=== PATIENT | female | born 1990 | race Caucasian/White ===

== ENCOUNTER 2018-03-05 15:22 | Emergency (ER) | payer MEDICARE, MEDICAID ==
[2018-03-05 16:40] LABS: ABS Basophils 0.2 10^3/ul (0-0.2); ABS Eosinophils 0.4 10^3/ul (0-0.6); ABS Lymphocytes 2.5 10^3/ul (1.0-4.8); ABS Neutrophils 9.8 10^3/ul (1.5-7.7); ABS Nucleated RBC 0 10^3/ul; Eosinophil % 2.9 % (0-6); Hematocrit 36 % (35-47); Hemoglobin 12.4 g/dl (12.0-16.0); Lymphocyte % 18.2 % (25-47); Mean Corpuscular HGB Conc 34 g/dl (31-36); Mean Corpuscular Hemoglobin 31 pg (27-31); Mean Corpuscular Volume 91 fL (80-97); Mean Platelet Volume 7.8 um3 (7.4-10.4); Nucleated Red Blood Cells % 0; Platelet Count 258 10^3/ul (150-450); Red Blood Count 3.99 10^6/ul (4.0-5.4); Red Cell Distribution Width 14 % (10.5-15)
[2018-03-05 17:02] LABS: EGFR Non-African American 78.1 (>60)
[2018-03-05 19:48] VITALS: BP 113/65
[2018-03-05] MEDS ORDERED: Nicotine PATCH 21 MG/24 HR* PATCH TRANSDERM ONE (20:27)
--- NOTE | 2018-03-05 23:25 | ED ---
Rashad Bergeron Rebecca, scribed for Angel Morris MD on 03/05/18 at 2215 . Progress - Progress Note Progress Note: Pt was signed out by Dr. Reynaga, pending dispo, awaiting MHE. Course/Dx - Course Course Of Treatment: Pt was signed out by Dr. Reynaga, pending dispo, awaiting MHE. Upon completion of MHE and consultation with Dr. Lovell, it has been determined that the pt can be D/C to home. Pt will be D/C with Dx of EtOH intoxication. - Diagnoses Provider Diagnoses: Alcohol intoxication Discharge - Sign-Out/Discharge Documenting (check all that apply): Discharge/Admit/Transfer - Discharge, Receiving Sign-Out Receiving patient FROM: Gavion Reynaga - Discharge Plan Condition: Stable Disposition: HOME Referrals: No Primary Care Phys,NOPCP [Primary Care Provider] - The documentation as recorded by the Rashad yanez Rebecca accurately reflects the service I personally performed and the decisions made by , Angel Morris MD.
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
== END 2018-03-05 22:44 | disposition home or self-care (01) ==
LOC: ED 15:22
DX: F32.9 Major depressive disorder, single episode, unspecified (principal); F41.9 Anxiety disorder, unspecified; F20.9 Schizophrenia, unspecified; Z11.4 Encounter for screening for human immunodeficiency virus [HIV]; Z86.19 Personal history of other infectious and parasitic diseases; Z86.14 Personal history of Methicillin resistant Staphylococcus aureus infection; Z81.8 Family history of other mental and behavioral disorders; Z81.1 Family history of alcohol abuse and dependence; F17.210 Nicotine dependence, cigarettes, uncomplicated
CPT/HCPCS: 36415; 80053; 80320; 80329; 84443; 85025; 86703; 99283; A9270-GY; G0480

== ENCOUNTER 2018-09-24 16:54 | Inpatient (IN) | payer MEDICAID, MEDICARE ==
[2018-09-24] MEDS ORDERED: chlorproMAZINE INJ* 25 MG/ML 2 ML (50 MG) IM ONE (17:10)
[2018-09-24] MEDS ORDERED: chlorproMAZINE INJ* 25 MG/ML 2 ML (50 MG) ONE (17:11)
--- NOTE | 2018-09-24 17:44 | ED ---
Medical Screening - HPI Summary HPI Summary: Patient brought to ED by [facility] complains of wanting to be euthanized. 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 History of self harm, states she was hitting door with her right hand last night, with subsequent abrasions to right hand. Denies self-harm today. Admits to marijuana use yesterday, but none today. Denies EtOH. Denies taking any medications for months. History of borderline bipolar, schizophrenia, depression. Patient appears to be delusional, alternately cooperative and noncooperative. When calm denies any symptoms of illness including fever, cough, sore throat, CP, SOB, N/V/D, abdominal pain, change in urine, change in BM. - History of Current Complaint Chief Complaint: EDMentalHealth Stated Complaint: 941 Time Seen by Provider: 09/24/18 17:04 Severity: moderate PMH/Surg Hx/FS Hx/Imm Hx Endocrine/Hematology History: Denies: Hx Anticoagulant Therapy, Hx Anemia, Hx Unexplained Bleeding Cardiovascular History: Denies: Hx Aneurysm, Hx Angina, Hx Angioplasty, Hx Auto Implanted Cardiovert Defib, Hx Cardiac Arrest, Hx Cardiomegaly, Hx Congenital Heart Disease, Hx Congestive Heart Failure, Hx Coronary Artery Disease, Hx Deep Vein Thrombosis, Hx Hypercholesterolemia, Hx Hypotension, Hx Hypertension, Hx Pacemaker/ICD, Hx Peripheral Vascular Disease, Hx Rheumatic Fever, Hx Syncope, Hx Valvular Heart Disease, Other Cardiovascular Problems/Disorders Respiratory History: Denies: Hx Asthma, Hx Chronic Bronchitis, Hx Chronic Obstructive Pulmonary Disease (COPD), Hx Cystic Fibrosis, Hx Lung Cancer, Hx Pleural Effusion, Hx Pneumonia, Hx Pulmonary Edema, Hx Pulmonary Embolism, Hx Seasonal Allergies, Hx Sleep Apnea, Other Respiratory Problems/Disorders GI History: Denies: Hx Cirrhosis, Hx Crohn's Disease, Hx Diverticulosis, Hx Gall Bladder Disease, Hx Gastroesophageal Reflux Disease, Hx Gastrointestinal Bleed, Hx Hiatal Hernia, Hx Irritable Bowel, Hx Jaundice, Hx Obstructive Bowel, Hx Ileostomy, Hx Pyloric Stenosis, Hx Ulcer, Other GI Disorders Musculoskeletal History: Denies: Hx Arthritis, Hx Back Problems, Hx Bursitis, Hx Congenital Bone Abnormalities, Hx Fibromyalgia, Hx Gout, Hx Orthopedic Injury, Hx Osteoporosis, Hx Scoliosis Sensory History: Denies: Hx Cataracts, Hx Contacts or Glasses, Hx Eye Injury, Hx Eye Prosthesis, Hx Glaucoma, Hx Macular Degeneration, Hx Vision Problem, Hx Deafness , Hx Hearing Aid, Hx Hearing Problem, Other Sensory Impairments Opthamlomology History: Denies: Hx Cataracts, Hx Contacts or Glasses, Hx Eye Injury, Hx Eye Prosthesis, Hx Glaucoma, Hx Macular Degeneration, Hx Vision Problem, Other Sensory Impairments Neurological History: Reports: 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, Hx Seizures Denies: Hx Dementia, Hx Developmental Delay, Hx Headaches, Hx Migraine, Hx Spinal Cord Injury, Hx Transient Ischemic Attacks (TIA) Psychiatric History: Reports: Hx Anxiety, Hx Depression, Hx Inpatient Treatment , Hx Community Mental Health Tx, Hx Schizophrenia - pt denies, located in previous H&P, Hx Suicide Attempt, Hx Substance Abuse Denies: Hx Eating Disorder, Hx of Violent Episodes Against Others Comment Only: Other Psychiatric Issues/Disorders - schizoaffective d/o - Surgical History Surgery Procedure, Year, and Place: Tubes in ears as child, Mastoid surgery Hx Anesthesia Reactions: No Infectious Disease History: Yes Infectious Disease History: Reports: Hx Hepatitis - hepatitis C, Hx of Known/ Suspected MRSA - blood Denies: Hx Clostridium Difficile, Hx Human Immunodeficiency Virus (HIV), Hx Shingles, Hx Tuberculosis, Traveled Outside the [place] in Last 30 Days - Family History Family History: Mother: depression. FHx: alcohol abuse - Social History Alcohol Use: Rare Substance Use Type: Reports: Cocaine, Heroin, Marijuana Smoking Status (MU): Light Every Day Tobacco Smoker Type: Cigarettes Amount Used/How Often: 5-10 a day Length of Time of Smoking/Using Tobacco: 3.5 years Have You Smoked in the Last Year: Yes Review of Systems Constitutional: Negative Eyes: Negative ENT: Negative Cardiovascular: Negative Respiratory: Negative Gastrointestinal: Negative Genitourinary: Negative Musculoskeletal: Negative Positive: Bruising Psychological: Normal All Other Systems Reviewed And Are Negative: Yes Physical Exam - Summary Physical Exam Summary: Patient at times cooperative, at times silent, at times screaming and delusional. Patient allowed physical exam. Abrasions to right hand. Patient flexing and extending fingers of right hand without indication of pain. No indication of trauma, wounds, ecchymosis, erythema, swelling or deformity noted to face, head. No pain with palpation of back, chest wall or abdomen. Indication of old cut wounds on left forearm. Patient has calluses on her feet suggesting she does not wear shoes often. Patient moves all 4 extremities freely without indication of pain. Patient requesting that we "cut her right hand off because it is diseased." Patient asking to be euthanized so she can go to a better place. Patient also states she is seeing babies. Triage Information Reviewed: Yes Vital Signs On Initial Exam: Initial Vitals Temp Pulse Resp BP Pulse Ox 97.8 F 114 20 129/86 98 09/24/18 16:55 09/24/18 16:55 09/24/18 16:55 09/24/18 16:55 09/24/18 16:55 Vital Signs Reviewed: Yes Appearance: Positive: Well-Appearing Skin: Positive: Warm Head/Face: Positive: Normal Head/Face Inspection Eyes: Positive: Normal ENT: Positive: Normal ENT inspection Neck: Positive: Supple Respiratory/Lung Sounds: Positive: Clear to Auscultation Cardiovascular: Positive: Normal Abdomen Description: Positive: Nontender Musculoskeletal: Positive: Normal Neurological: Positive: Normal Psychiatric: Positive: Anxious, Depressed AVPU Assessment: Alert - [place] Coma Scale Best Eye Response: 4 - Spontaneous Best Motor Response: 6 - Obeys Commands Best Verbal Response: 5 - Oriented Coma Scale Total: 15 Diagnostics - Vital Signs Vital Signs Temp Pulse Resp BP Pulse Ox 09/24/18 16:55 97.8 F 114 20 129/86 98 - Laboratory Result Diagrams: 09/24/18 17:44 09/24/18 17:44 Lab Statement: Any lab studies that have been ordered have been reviewed, and results considered in the medical decision making process. Course/Dx - Course Course Of Treatment: Patient brought to ED by [facility] complains of wanting to be euthanized. 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 History of self harm, states she was hitting door with her right hand last night, with subsequent abrasions to right hand. Denies self-harm today. Admits to marijuana use yesterday, but none today. Denies EtOH. Denies taking any medications for months. History of borderline bipolar, schizophrenia, depression. Patient appears to be delusional, alternately cooperative and noncooperative. When calm denies any symptoms of illness including fever, cough , sore throat, CP, SOB, N/V/D, abdominal pain, change in urine, change in BM. Physical exam: Patient at times cooperative, at times silent, at times screaming and delusional. Patient allowed physical exam. Abrasions to right hand. Patient flexing and extending fingers of right hand without indication of pain. No indication of trauma, wounds, ecchymosis, erythema, swelling or deformity noted to face, head. No pain with palpation of back, chest wall or abdomen. Indication of old cut wounds on left forearm. Patient has calluses on her feet suggesting she does not wear shoes often. Patient moves all 4 extremities freely without indication of pain. Patient requesting that we "cut her right hand off because it is diseased." Patient asking to be euthanized so she can go to a better place. Patient also states she is seeing babies. Patient allowed labs to be drawn. Vital signs within normal limits. WBC 11.5. Creatinine 1.2. Labs otherwise unremarkable. Patient needs to hydrate. Otherwise medically cleared. Patient will be admitted to [facility] psychiatric unit. - Diagnoses Provider Diagnoses: Psychosis Discharge - Sign-Out/Discharge Documenting (check all that apply): Patient Departure - Discharge Plan Condition: Stable Disposition: PSYCHIATRIC FACILITY-[facility] Referrals: No Primary Care Phys,NOPCP [Primary Care Provider] - - Billing Disposition and Condition Condition: STABLE Disposition: Psychiatric Facility [facility]
[2018-09-24 17:52] LABS: ABS Basophils 0.1 10^3/ul (0-0.2); ABS Eosinophils 0.1 10^3/ul (0-0.6); ABS Lymphocytes 1.6 10^3/ul (1.0-4.8); ABS Neutrophils 8.8 10^3/ul (1.5-7.7); ABS Nucleated RBC 0 10^3/ul; Hematocrit 43 % (35-47); Hemoglobin 14.3 g/dl (12.0-16.0); Lymphocyte % 13.6 %; Mean Corpuscular HGB Conc 34 g/dl (31-36); Mean Corpuscular Hemoglobin 30 pg (27-31); Mean Corpuscular Volume 91 fL (80-97); Mean Platelet Volume 7.7 fL (7.4-10.4); Nucleated Red Blood Cells % 0.1; Platelet Count 282 10^3/ul (150-450); Red Blood Count 4.71 10^6/ul (4.00-5.40); Red Cell Distribution Width 14 % (10.5-15); White Blood Count 11.5 10^3/ul (3.5-10.8)
[2018-09-24 18:16] LABS: ALT 10 U/L (7-52); AST 13 U/L (13-39); Albumin 4.7 g/dL (3.2-5.2); Albumin/Globulin Ratio 1.6 (1-3); Alkaline Phosphatase 54 U/L (34-104); Anion Gap 7 mmol/L (2-11); BUN/Creatinine Ratio 13.3 (8-20); Blood Urea Nitrogen 16 mg/dL (6-24); CO2 Carbon Dioxide 25 mmol/L (22-32); Calcium 9.4 mg/dL (8.6-10.3); Chloride 106 mmol/L (101-111); EGFR Non-African American 53.5 (>60); Glucose 96 mg/dL (70-100); Potassium 3.9 mmol/L (3.5-5.0); Sodium 138 mmol/L (135-145); Total Protein 7.7 g/dL (6.4-8.9)
[2018-09-24 18:34] LABS: Acetaminophen < 15 mcg/mL; Alcohol < 10 mg/dL (<10); Salicylate < 2.50 mg/dL (<30)
[2018-09-24 18:56] LABS: TSH (Thyroid Stimulating Horm) 2.65 mcIU/mL (0.34-5.60)
[2018-09-25] MEDS ORDERED: Mouth Piece, Nicotine* 1 EACH CARTRIDGE ONE (03:45)
[2018-09-25] MEDS: Nicotine Inhaler* 10 MG AMP INH PRN ×4 (03:51→19:50)
[2018-09-25 04:01] LABS: Urine Appearance Cloudy; Urine Bacteria 1+ (Absent); Urine Bilirubin Negative (Negative); Urine Blood 1+ (Negative); Urine Color Amber; Urine Glucose Negative (Negative); Urine Ketones Trace (Negative); Urine Nitrite Positive (Negative); Urine Protein 1+(30 mg/dL) (Negative); Urine Red Blood Cell 2+(6-10/hpf) (Absent); Urine Specific Gravity 1.028 (1.010-1.030); Urine Urobilinogen Negative (Negative); Urine White Blood Cell 3+(>20/hpf) (Absent)
[2018-09-25 04:14] LABS: Barbiturates Urine Screen None Detected (None Detect); Benzodiazepine Urine Screen None Detected (None Detect); Urine Cannabinoids Screen Presumptive Positive (None Detect)
[2018-09-25] MEDS ORDERED: Nicotine PATCH 14 MG/24 HR* PATCH TRANSDERM ONE (04:22)
[2018-09-25] MEDS ORDERED: LORazepam TAB(*) 1 MG PO ONE ×3 (04:35→12:02)
[2018-09-25] MEDS ORDERED: LORazepam TAB(*) 1 MG ONE (04:38)
[2018-09-25] MEDS ORDERED: ARIPiprazole TAB* 5 MG PO ONE (12:01)
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
[2018-09-25] MEDS: QUEtiapine TAB* 25 MG PO PRN (20:17)
[2018-09-26] MEDS: Nicotine Inhaler* 10 MG AMP INH PRN ×6 (03:16→17:33)
[2018-09-26] MEDS: QUEtiapine TAB* 25 MG PO PRN ×3 (05:21→16:29)
[2018-09-26] MEDS ORDERED: ARIPiprazole TAB* 15 MG PO ONE (09:56)
--- NOTE | 2018-09-26 10:07 | PN ---
Subjective - Subjective Service Type: 47916 Hosp care 25 min moderate complexity Subjective: Luanne denies any hallucinations today. She agrees she has paranoia, that she has been monitored through her phone for the past year. When this provider offered that this is conceivable, as phones can be hacked, she became upset and yelled at this communications writer that if we are not going to take her seriously, she does not want to talk to anyone. To avoid escalation, this communications writer left the interview after telling patient I do take her reports seriously and would see if she wants to talk later. Reported patient's behavior to her 1:1 person, Romain , who agreed she would follow up with patient. Luanne has been having repeated episodes of yelling, seemingly in response to internal stimuli, and has banged her head on the wall. She showed no sign of injury from head banging. She did agree to initiate IM aripiprazole as Aristada. Objective - Appearance Appearance: Well Developed/Nourished Dysmorphic Features: No Hygiene: Normal Grooming: Disheveled - Behavior Psychomotor Activities: Abnormal-Decreased - in bed Exhibits Abnormal Movement: No - Attitude and Relatedness Attitude and Relatedness: Dismissive Eye Contact: Poor - Speech Quality: Unpressured Latencies: Normal Quantity: Terse - Mood Patient's Decription of Mood: "Down" - Affect Observed Affect: Labile - Thought Process Patient's Thought Process: Disorganized Thought Content: Yes Passive Wish, Yes Paranoid Ideation, No Suicidal Planning, No Homicidal Ideation - Sensorium Experiencing Hallucinations: No, Sensorium is Clear - Level of Consciousness Level of Consciousness: Agitated Orientation: Yes Intact - Impulse Control Impulse Control: Impaired - Insight and Judgement Insight and Judgement: Impaired - Medication Management Medication Management Adherence: Yes Assessment - Assessment Merits Inpatient Hospitalization: For Immediate Safety, For Stabilization, To Initiate Treatment, For Ongoing Evaluation, For Discharge Planning, Pending Safe DC Plan Inpatient DSM-V Dx: F20.9 Clinical Impression: Ms Caldwell is a 28 year-old woman with schizophrenia admitted for safety, assessment and treatment after reporting that she wanted to be euthanized and felt she needed her right hand removed because it produces evil, though truthful , drawings and writings. On the unit she has had repeated outbursts of yelling in seeming response to internal stimuli and continues to report delusional thoughts. She demonstrates a high sensitivity to tone of interaction, for example she was unable to tolerate this communications writer's neutral examination of her report of paranoia today. She has agreed to reinitiate aripiprazole as a GHOTRA. Plan - Plan Treatment Plan: Name: LUANNE CALDWELL Birthdate: 1990 [id number] Monitor for safety especially after Luanne hit her head against the wall, and she has reported thoughts about amputating her right hand, toward which thought she has reported no intent to act at this time. Encourage engagement with staff toward goal of group and milieu participation. Initiate IM ariprazole today. Social work staff will gather collateral and plan for discharge. Case reviewed with 1:1 after patient demanded end of interview today in response to exploration of reported paranoia. Continued Medication Management: Start Medication Medications: Current Medications Aripiprazole (Abilify Tab*) 30 mg PO ONCE ONE Stop: 09/26/18 09:57 Aripiprazole Lauroxil (Aristada) 662 mg IM ONCE ONE Stop: 09/26/18 09:52 Nicotine (Nicotine Inhaler*) 10 mg INH Q2H PRN PRN Reason: CRAVING Last Admin: 09/26/18 09:06 Dose: 10 mg Quetiapine Fumarate (Seroquel Tab*) 50 mg PO Q2H PRN PRN Reason: AGITATION/ANXIETY/INSOMNIA Last Admin: 09/26/18 09:14 Dose: 50 mg - Discharge Plan Discharge Plan: Outpatient Follow Up Outpatient Program: [facility] Additional Comments: Not yet clear to where patient will discharge. Clarity on this point will guide aftercare arrangements.
[2018-09-26] MEDS ORDERED: Nicotine PATCH 21 MG/24 HR* PATCH ONE (14:53)
[2018-09-26] MEDS ORDERED: LORazepam TAB(*) 1 MG PO ONE (18:25)
[2018-09-26] MEDS ORDERED: chlorproMAZINE TAB* 50 MG PO ONE (18:25)
[2018-09-26] MEDS ORDERED: LORazepam TAB(*) 1 MG ONE (18:26)
[2018-09-26] MEDS ORDERED: chlorproMAZINE TAB* 50 MG ONE (18:26)
[2018-09-26] MEDS: Nicotine Patch Removal NOTE FOLLOW UP SCH (23:39)
[2018-09-27] MEDS ORDERED: Acetaminophen TAB* 325 MG ONE (01:28)
[2018-09-27] MEDS: Acetaminophen TAB* 325 MG PO PRN ×3 (01:30→22:19)
[2018-09-27] MEDS: Nicotine Inhaler* 10 MG AMP INH PRN ×5 (01:30→16:41)
[2018-09-27] MEDS: Nicotine PATCH 21 MG/24 HR* PATCH TRANSDERM SCH (07:25)
--- NOTE | 2018-09-27 13:19 | PN ---
Subjective - Subjective Date of Service: 09/27/18 Service Type: 73135 Hosp care 25 min moderate complexity Subjective: Luanne reports that she tried to hang herself last night on the unit due to feeling that others did not care about her and due to thoughts about her last interaction with her parents on . She reports that she was angry when she pulled a fountain off the wall, and could not elaborate further on her reason for doing that. She reports on meeting with me around 1 pm that she is not contemplating any harm to herself or damage to things now. She reports that she has come to see that there are people around her who care about her. Objective - Appearance Appearance: Well Developed/Nourished Dysmorphic Features: No Hygiene: Normal Grooming: Fairly Well Kept - Behavior Psychomotor Activities: Normal Exhibits Abnormal Movement: No - Attitude and Relatedness Attitude and Relatedness: Cooperative Eye Contact: Fair - Speech Quality: Unpressured Latencies: Normal Quantity: Appropriate - Mood Patient's Decription of Mood: "Okay" - Affect Observed Affect: Depressed Affect Consistent with: Dysphoria - Thought Process Patient's Thought Process: Coherent, Goal Directed Thought Content: No Passive Wish, No Suicidal Planning, No Homicidal Ideation, No Paranoid Ideation - Sensorium Experiencing Hallucinations: No, Sensorium is Clear - Level of Consciousness Level of Consciousness: Alert Orientation: Yes Intact, Yes Orientated to Time, Yes Orientated to Place, Yes Orientated to Person - Impulse Control Impulse Control: Tenuous - Insight and Judgement Insight and Judgement: Poor - Group Participation Particating in Group Activities: No - Medication Management Medication Management Adherence: Yes Assessment - Assessment Merits Inpatient Hospitalization: For Immediate Safety, For Stabilization, To Initiate Treatment, For Ongoing Evaluation, Pending Safe DC Plan Inpatient DSM-V Dx: F20.9 Clinical Impression: Ms Caldwell is a 28 year-old woman with schizophrenia admitted for safety, assessment and treatment after reporting that she wanted to be euthanized and felt she needed her right hand removed because it produces evil, though truthful , drawings and writings. On the unit she has had repeated outbursts of yelling in seeming response to internal stimuli and continues to report delusional thoughts. She demonstrates a high sensitivity to tone of interaction, for example she was unable to tolerate this singer songwriter's neutral examination of her report of paranoia yesterday. Aripiprazole GHOTRA was reinitiated yesterday. Pharmacy informed us that it takes about 4 days for the Aristada Initio to reach efficacious serum levels. Plan - Plan Treatment Plan: Name: LUANNE CALDWELL Birthdate: 1990 [id number] Monitor for safety on constant observation due to Luanne's reported attempt to hang herself and damage to a drinking fountain last evening. Encourage engagement with staff in case of impulses to harm self, others or property and to move toward goal of group and milieu participation. Initiated IM ariprazole yesterday. Continue PRN Seroquel. Social work staff will gather collateral and plan for discharge. Medications: Current Medications Acetaminophen (Tylenol Tab*) 650 mg PO Q4H PRN PRN Reason: PAIN Last Admin: 09/27/18 01:30 Dose: 650 mg Nicotine (Nicotine Inhaler*) 10 mg INH Q2H PRN PRN Reason: CRAVING Last Admin: 09/27/18 10:10 Dose: 10 mg Nicotine (Nicotine Patch 21 Mg/24 Hr*) 1 patch TRANSDERM DAILY@[facility] Last Admin: 09/27/18 07:25 Dose: 1 patch Pharmacy Profile Note (Nicotine Patch Removal Note*) 1 note FOLLOW UP [facility] Last Admin: 09/26/18 23:39 Dose: Not Given Quetiapine Fumarate (Seroquel Tab*) 50 mg PO Q2H PRN PRN Reason: AGITATION/ANXIETY/INSOMNIA Last Admin: 09/26/18 16:29 Dose: 50 mg - Discharge Plan Discharge Plan: Outpatient Follow Up Additional Comments: Not yet clear to where patient will discharge. Clarity on this point will guide aftercare arrangements.
[2018-09-27] MEDS ORDERED: Ziprasidone CAP* 80 MG PO SCH (14:00)
[2018-09-27] MEDS: QUEtiapine TAB* 25 MG PO PRN ×2 (14:03→22:18)
[2018-09-27] MEDS: Nicotine Patch Removal NOTE FOLLOW UP SCH (23:22)
[2018-09-28] MEDS: Nicotine Inhaler* 10 MG AMP INH PRN ×4 (06:00→19:57)
[2018-09-28] MEDS: Nicotine PATCH 21 MG/24 HR* PATCH TRANSDERM SCH (07:00)
--- NOTE | 2018-09-28 18:25 | PN ---
Subjective - Subjective Date of Service: 09/28/18 Service Type: [id number] Hosp care 15 min low complexity Subjective: Luanne continues to be on continuous obs for safety. Spent a lot of time in the exercise room. Says she feels fine today and didn't think about harming self or others. Mood is better and hasn't been hearing voices or seeing things. Objective - Appearance Appearance: Healthy Appearing Dysmorphic Features: No Hygiene: Normal Grooming: Well Kept - Behavior Psychomotor Activities: Normal Exhibits Abnormal Movement: No - Attitude and Relatedness Attitude and Relatedness: Appropriate Eye Contact: Good - Speech Quality: Unpressured Latencies: Normal Quantity: Appropriate - Mood Patient's Decription of Mood: "Fine" - Affect Observed Affect: Non-labile Affect Consistent with: Euthymia - Thought Process Patient's Thought Process: Coherent, Goal Directed Thought Content: No Passive Wish, No Suicidal Planning, No Homicidal Ideation, No Paranoid Ideation - Sensorium Experiencing Hallucinations: No, Sensorium is Clear Type of Hallucinations: Visual: No, Auditory: No, Command: No - Level of Consciousness Level of Consciousness: Alert Orientation: Yes Intact, Yes Orientated to Time, Yes Orientated to Place, Yes Orientated to Person - Impulse Control Impulse Control: Tenuous - Insight and Judgement Insight and Judgement: Poor - Group Participation Particating in Group Activities: No - Medication Management Medication Management Adherence: Yes Assessment - Assessment Merits Inpatient Hospitalization: For Immediate Safety, For Stabilization, For Ongoing Evaluation, Pending Safe DC Plan Inpatient DSM-V Dx: F20.9 Clinical Impression: Ms Caldwell is a 28 year-old woman with schizophrenia admitted for safety, assessment and treatment after reporting that she wanted to be euthanized and felt she needed her right hand removed because it produces evil, though truthful , drawings and writings. On the unit she has had repeated outbursts of yelling in seeming response to internal stimuli and continues to report delusional thoughts. She demonstrates a high sensitivity to tone of interaction, for example she was unable to tolerate this sba underwriter's neutral examination of her report of paranoia yesterday. Aripiprazole GHOTRA was reinitiated yesterday. Pharmacy informed us that it takes about 4 days for the Aristada Initio to reach efficacious serum levels. Plan - Plan Treatment Plan: Name: LUANNE CALDWELL Birthdate: 1990 [id number] Monitor for safety on constant observation due to Luanne's reported attempt to hang herself and damage to a drinking fountain last evening. Encourage engagement with staff in case of impulses to harm self, others or property and to move toward goal of group and milieu participation. Initiated IM ariprazole yesterday. Continue PRN Seroquel. Social work staff will gather collateral and plan for discharge. Continued Medication Management: Continue Outpt Medication Medications: Current Medications Acetaminophen (Tylenol Tab*) 650 mg PO Q4H PRN PRN Reason: PAIN Last Admin: 09/27/18 22:19 Dose: 650 mg Nicotine (Nicotine Inhaler*) 10 mg INH Q2H PRN PRN Reason: CRAVING Last Admin: 09/28/18 13:54 Dose: 10 mg Nicotine (Nicotine Patch 21 Mg/24 Hr*) 1 patch TRANSDERM DAILY@0800 [facility] Last Admin: 09/28/18 07:00 Dose: 1 patch Pharmacy Profile Note (Nicotine Patch Removal Note*) 1 note FOLLOW UP 2100 [facility] Last Admin: 09/27/18 23:22 Dose: Not Given Quetiapine Fumarate (Seroquel Tab*) 50 mg PO Q2H PRN PRN Reason: AGITATION/ANXIETY/INSOMNIA Last Admin: 09/27/18 22:18 Dose: 50 mg - Discharge Plan Discharge Plan: Outpatient Follow Up Outpatient Program: [facility]
[2018-09-28] MEDS: Nicotine Patch Removal NOTE FOLLOW UP SCH (20:00)
[2018-09-28] MEDS: QUEtiapine TAB* 25 MG PO PRN (21:06)
[2018-09-29] MEDS: Nicotine Inhaler* 10 MG AMP INH PRN ×4 (02:30→18:45)
[2018-09-29] MEDS: QUEtiapine TAB* 25 MG PO PRN ×2 (02:31→15:15)
[2018-09-29] MEDS: Nicotine PATCH 21 MG/24 HR* PATCH TRANSDERM SCH (07:08)
[2018-09-30] MEDS: Nicotine Inhaler* 10 MG AMP INH PRN ×5 (01:24→15:34)
[2018-09-30] MEDS: QUEtiapine TAB* 25 MG PO PRN (01:24)
[2018-09-30] MEDS: Nicotine Patch Removal NOTE FOLLOW UP SCH ×2 (07:30→22:01)
[2018-09-30] MEDS: Nicotine PATCH 21 MG/24 HR* PATCH TRANSDERM SCH (08:28)
[2018-09-30] MEDS: Acetaminophen TAB* 325 MG PO PRN (10:21)
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
[2018-10-01] MEDS: Nicotine Inhaler* 10 MG AMP INH PRN ×7 (00:29→19:07)
[2018-10-01] MEDS: QUEtiapine TAB* 25 MG PO PRN ×2 (00:29→20:31)
[2018-10-01] MEDS: Nicotine PATCH 21 MG/24 HR* PATCH TRANSDERM SCH (08:16)
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
[2018-10-01] MEDS: Nicotine Patch Removal NOTE FOLLOW UP SCH (23:42)
[2018-10-02] MEDS: Nicotine Inhaler* 10 MG AMP INH PRN ×3 (04:25→11:27)
[2018-10-02] MEDS: QUEtiapine TAB* 25 MG PO PRN (04:25)
[2018-10-02] MEDS: Nicotine PATCH 21 MG/24 HR* PATCH TRANSDERM SCH (08:14)
[2018-10-02 08:51] VITALS: BP 113/71
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
== END 2018-10-02 12:30 | disposition home or self-care (01) | DRG 885 ==
LOC: ED 16:54 → BSU 09-25 05:10
PROVIDERS: ADMIT Psychiatry & Neurology Psychiatry; ATTEND Psychiatry & Neurology Psychiatry
DX: F20.9 Schizophrenia, unspecified (principal); F12.90 Cannabis use, unspecified, uncomplicated; F17.210 Nicotine dependence, cigarettes, uncomplicated; F11.11 Opioid abuse, in remission; F41.9 Anxiety disorder, unspecified; Z81.1 Family history of alcohol abuse and dependence; Z81.3 Family history of other psychoactive substance abuse and dependence; Z81.8 Family history of other mental and behavioral disorders; Z86.19 Personal history of other infectious and parasitic diseases
CPT/HCPCS: 36415; 80053; 80307; 80320; 80329; 81003; 81015; 84443; 85025; 87077; 87086; 87186; 99222; 99231; 99232; 99283; A9270-GY; G0480

== ENCOUNTER 2019-11-05 01:55 | Inpatient (IN) | payer MEDICARE, MEDICAID ==
--- NOTE | 2019-11-05 02:06 | ED ---
Substance Abuse/Use - HPI Summary HPI Summary: 29 year old F brought in by EMS to [facility] from [facility] complains of paranoid thoughts about people trying to poison her after using heroin yesterday 11/04/2019. Patient was combative at [place] per EMS. EMS administered Benadryl, Haldol, and Ativan en route. Patient denies suicidal ideation. LEVEL 5 caveat due to patient being sedated prior to arrival - History Of Current Complaint Stated Complaint: MENTAL HEALTH Hx Obtained From: EMS Associated Signs And Symptoms: Negative - SI - Allergies/Home Medications Allergies/Adverse Reactions: Allergies Allergy/AdvReac Type Severity Reaction Status Date / Time No Known Allergies Allergy Verified 11/05/19 02:00 PMH/Surg Hx/FS Hx/Imm Hx Endocrine/Hematology History: Denies: Hx Anticoagulant Therapy, Hx Anemia, Hx Unexplained Bleeding Cardiovascular History: Denies: Hx Aneurysm, Hx Angina, Hx Angioplasty, Hx Auto Implanted Cardiovert Defib, Hx Cardiac Arrest, Hx Cardiomegaly, Hx Congenital Heart Disease, Hx Congestive Heart Failure, Hx Coronary Artery Disease, Hx Deep Vein Thrombosis, Hx Hypercholesterolemia, Hx Hypotension, Hx Hypertension, Hx Pacemaker/ICD, Hx Peripheral Vascular Disease, Hx Rheumatic Fever, Hx Syncope, Hx Valvular Heart Disease, Other Cardiovascular Problems/Disorders Respiratory History: Denies: Hx Asthma, Hx Chronic Bronchitis, Hx Chronic Obstructive Pulmonary Disease (COPD), Hx Cystic Fibrosis, Hx Lung Cancer, Hx Pleural Effusion, Hx Pneumonia, Hx Pulmonary Edema, Hx Pulmonary Embolism, Hx Seasonal Allergies, Hx Sleep Apnea, Other Respiratory Problems/Disorders GI History: Denies: Hx Cirrhosis, Hx Crohn's Disease, Hx Diverticulosis, Hx Gall Bladder Disease, Hx Gastroesophageal Reflux Disease, Hx Gastrointestinal Bleed, Hx Hiatal Hernia, Hx Irritable Bowel, Hx Jaundice, Hx Obstructive Bowel, Hx Ileostomy, Hx Pyloric Stenosis, Hx Ulcer, Other GI Disorders Musculoskeletal History: Denies: Hx Arthritis, Hx Back Problems, Hx Bursitis, Hx Congenital Bone Abnormalities, Hx Fibromyalgia, Hx Gout, Hx Orthopedic Injury, Hx Osteoporosis, Hx Scoliosis Sensory History: Denies: Hx Cataracts, Hx Contacts or Glasses, Hx Eye Injury, Hx Eye Prosthesis, Hx Glaucoma, Hx Macular Degeneration, Hx Vision Problem, Hx Deafness , Hx Hearing Aid, Hx Hearing Problem, Other Sensory Impairments Opthamlomology History: Denies: Hx Cataracts, Hx Contacts or Glasses, Hx Eye Injury, Hx Eye Prosthesis, Hx Glaucoma, Hx Macular Degeneration, Hx Vision Problem, Other Sensory Impairments Neurological History: Reports: 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, Hx Seizures Denies: Hx Dementia, Hx Developmental Delay, Hx Headaches, Hx Migraine, Hx Spinal Cord Injury, Hx Transient Ischemic Attacks (TIA) Psychiatric History: Reports: Hx Anxiety, Hx Depression, Hx Inpatient Treatment , Hx Community Mental Health Tx, Hx Schizophrenia, Hx Suicide Attempt, Hx of Violent Episodes Against Others, Hx Substance Abuse, Other Psychiatric Issues/ Disorders - schizoaffective d/o Denies: Hx Eating Disorder - Surgical History Surgery Procedure, Year, and Place: Tubes in ears as child, Mastoid surgery Hx Anesthesia Reactions: No Infectious Disease History: Reports: Hx Hepatitis - hepatitis C, Hx of Known/ Suspected MRSA - blood Denies: Hx Clostridium Difficile, Hx Human Immunodeficiency Virus (HIV), Hx Shingles, Hx Tuberculosis - Family History Family History: Mother: depression. FHx: alcohol abuse - Social History Alcohol Use: Occasionally Hx Substance Use: Yes Substance Use Type: Reports: Heroin, Marijuana, Other - meth Hx Tobacco Use: Yes Smoking Status (MU): Current Every Day Smoker Type: Cigarettes Amount Used/How Often: 5-10 a day Length of Time of Smoking/Using Tobacco: 3.5 years Have You Smoked in the Last Year: Yes Review of Systems Negative: Fever Positive: Other - paranoid thoughts; NEG: SI All Other Systems Reviewed And Are Negative: Yes Physical Exam - Summary Physical Exam Summary: Appearance: Well-appearing, Well-nourished, lying in bed comfortably Skin: Warm, dry, no obvious rash Eyes: sclera anicteric, no conjunctival pallor ENT: mucous membranes moist, pharynx appears normal Neck: Supple, nontender Respiratory: Clear to auscultation, no signs of respiratory distress Cardiovascular: Normal S1, S2. No murmurs. Normal distal pulses in tibial and radial bilaterally. Abdomen: Soft, nontender, normal active bowel sounds present Musculoskeletal: Normal, Strength/ROM Intact Neurological: Patient is arousable to voice. She can answer simple questions. Psychiatric: She admits to using heroin and perhaps other drugs. She denies any suicidal ideation LEVEL 5 caveat due to patient being sedated prior to arrival Triage Information Reviewed: Yes Vital Signs Reviewed: Yes Procedures - Sedation Patient Received Moderate/Deep Sedation with Procedure: No Course/Dx - Course Course Of Treatment: 29 y/o F brought in by EMS from [facility] presents with paranoid thoughts about people trying to poison her after using heroin yesterday 11/04/2019. EMS administered Benadryl, Haldol, and Ativan en route. Patient denies suicidal ideation. Upon exam, the patient is arousable to voice. She can answer simple questions. She admits to using heroin and perhaps other drugs. She denies any suicidal ideation. Patient will be signed out to Dr. Tesfaye upon shift change 11/05/2019 0700 pending psychiatric evaluation and disposition. - Diagnoses Provider Diagnoses: Substance abuse, Schizophrenia Discharge ED - Sign-Out/Discharge Documenting (check all that apply): Sign-Out Patient Signing out patient TO: Daquan Tesfaye - Discharge Plan Condition: Stable Disposition: PSYCHIATRIC FACILITY-OTHER - Billing Disposition and Condition Condition: STABLE Disposition: Psychiatric Facility Other - Attestation Statements Document Initiated by Scribe: Yes Documenting Scribe: Hailey Jacobson Provider For Whom [place] is Documenting (Include Credential): Krishna Dumont MD Scribe Attestation: Hailey Bergeron, scribed for Krishna Dumont MD on 11/06/19 at 0506. Scribe Documentation Reviewed: Yes Provider Attestation: The documentation as recorded by the Hailey yanez accurately reflects the service I personally performed and the decisions made by me, Krishna Dumont MD Status of Scribe Document: Viewed
--- NOTE | 2019-11-05 07:04 | ED ---
Progress - Progress Note Progress Note: This patient was signed out from upon shift change on 11/05/2019 at 0700, pending MHE and disposition. 1342: MHE diagnoses pt with schizophrenia and substance abuse. Pt will be admitted to [facility] psych. Course/Dx - Diagnoses Provider Diagnoses: Substance abuse, Schizophrenia Discharge ED - Sign-Out/Discharge Documenting (check all that apply): Patient Departure - admit - Discharge Plan Condition: Stable Disposition: PSYCHIATRIC FACILITY-OTHER - Billing Disposition and Condition Condition: STABLE Disposition: Psychiatric Facility Other - Attestation Statements Document Initiated by Scribe: Yes Documenting Scribe: Narendra Shaikh Provider For Whom Scribe is Documenting (Include Credential): Lior Tesfaye DO Scribe Attestation: Narendra Bergeron scribed for Lior Tesfaye DO on 11/05/19 at 1744. Scribe Documentation Reviewed: Yes Provider Attestation: The documentation as recorded by the scribeNarendra accurately reflects the service I personally performed and the decisions made by me, Lior Tesfaye DO Status of Scribe Document: Viewed
[2019-11-05] MEDS ORDERED: LORazepam TAB(*) 1 MG PO ONE (14:24)
[2019-11-05] MEDS: Nicotine PATCH 14 MG/24 HR* PATCH TRANSDERM SCH (14:42)
[2019-11-05] MEDS ORDERED: Al Hydrox/Mg Hydrox/Simet LIQ* 30 ML UDC PO PRN (15:17)
[2019-11-05] MEDS ORDERED: Acetaminophen TAB* 325 MG PO PRN (15:17)
[2019-11-05] MEDS ORDERED: chlorproMAZINE TAB* 100 MG PO PRN (15:18)
[2019-11-05] MEDS: Nicotine Patch Removal NOTE PATCH OFF SCH (20:41)
[2019-11-06] MEDS: Nicotine PATCH 14 MG/24 HR* PATCH TRANSDERM SCH (08:44)
[2019-11-06] MEDS ORDERED: LORazepam TAB(*) 1 MG PO SCH (12:00)
[2019-11-06] MEDS: Nicotine PATCH 21 MG/24 HR* PATCH TRANSDERM SCH (12:23)
--- NOTE | 2019-11-06 15:17 | HP ---
HISTORY AND PHYSICAL: ADDENDUM: DIAGNOSTIC STUDIES/LAB DATA: Labs were obtained at [facility] prior to the patient's arrival to [facility]. CBC generally unremarkable. Chemistry: Glucose of 124, anion gap 12, protein 8.8, globulin 4.5, A/G ratio of 0.9, AST 12. Urinalysis, no results. Urine drug screen positive for cannabinoids and amphetamines. NIKHIL ANGUIANO, DIRECTOR OF ENTERPRISE APPLICATIONS [id number]/[facility] #: [id number] [facility]
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
[2019-11-07] MEDS: Nicotine Patch Removal NOTE PATCH OFF SCH ×2 (02:00→22:18)
[2019-11-07] MEDS: OLANzapine TAB*ODT* 5 MG PO SCH ×2 (02:00→12:16)
[2019-11-07] MEDS: Nicotine PATCH 21 MG/24 HR* PATCH TRANSDERM SCH (08:28)
[2019-11-07] MEDS: Nicotine* 4MG (FRUIT FLAVOR) GUM PO PRN ×2 (11:32→14:13)
[2019-11-07] MEDS: Folic Acid TAB* 1 MG PO SCH (12:15)
[2019-11-07] MEDS: Multivitamins/Minerals TAB PO SCH (12:16)
[2019-11-07] MEDS: Thiamine TAB* 100 MG TAB PO SCH (12:16)
[2019-11-07] MEDS ORDERED: LORazepam TAB(*) 1 MG PO ONE (14:37)
[2019-11-07] MEDS ORDERED: LORazepam TAB(*) 1 MG ONE (14:37)
--- NOTE | 2019-11-07 16:31 | PN ---
Subjective - Subjective Date of Service: 11/07/19 Service Type: 26881 Hosp care 25 min moderate complexity Subjective: According to staff, patient has been alternately irritable and isolative. Patient is guarded and labile. She states "I don't know who to trust." She denies recent methamphetamine use and reports she is in a "spiritual crisis." She expresses disbelief when I repeat statements she made to me yesterday. She states her parents are not allowed to be contacted because they, and others, are poisoning her. Patient encouraged to take medications to assist in moving towards discharge. Objective - General Observations Appearance: Malodorous, Unkempt Stature: Thin Posture: WNL Eye Contact: Avoidant Behavior/Activity: Peculiar, Agitated - Interaction Observations Attitude Towards Examiner: Anxious, Evasive, Mistrustful Stated Mood: Irritable, Anxious Affect: Labile, Incongruent Speech Pattern/Tone: Quiet Volume Thought Process: Disorganized Perception: WNL Thought Content: Paranoid Thought Process: Lethality: Paranoid Ideation Hallucination Type: Auditory, Visual Delusion Type: Persecution - Cognitive Function Orientation: A&O x 4 Level of Consciousness: Alert Cognition: Impaired Attention/Concentration Estimated Intelligence: Normal Insight: Difficulty Acknowledging Presence of Psyciatric Problems Judgment Within Normal Limits: No Ability to Make Reasonable Decisions: Serverely Impaired - Medication Compliance Cooperative with Inpatient Medication Regimen: No - Group Participation Participates in Group Activities: No Assessment - Assessment Merits Inpatient Hospitalization: For Immediate Safety, For Stabilization Inpatient DSM-V Dx: F15.159 Clinical Impression: 29yo wf, domiciled, disabled with known history of schizophrenia and substance abuse. She presented to [facility] when driven there by a stranger after acting bizarrely in a laundromat. She was combative and agitated in ED, thus received emergency medication and transported to [facility] for psychiatric admission. She is floridly psychotic and endorses latter-day and persecutory delusions. She merits hospitalization for immediate safety and stabilization. Plan - Plan Treatment Plan: Name: MARY FERREIRA Birthdate: 1990 [id number] continue acute intensive psychiatric treatment. DC olanzapine. start aripiprazole 5mg qhs. continue other medications as ordered. patient has submitted court request and [facility] is pursuing Treatment Over Objection. Continued Medication Management: Start Medication Medications: Current Medications Acetaminophen (Tylenol Tab*) 650 mg PO Q4H PRN PRN Reason: for pain; or Temp >101 F Al Hydrox/Mg Hydrox/Simethicone (Maalox Plus*) 30 ml PO Q4H PRN PRN Reason: INDIGESTION Aripiprazole (Abilify Tab*) 5 mg PO BEDTIME [facility] Chlorpromazine HCl (Thorazine Tab*) 100 mg PO Q6H PRN PRN Reason: AGITATION Last Admin: 11/07/19 14:38 Dose: 100 mg Folic Acid (Folvite Tab*) 1 mg PO DAILY [facility] Last Admin: 11/07/19 12:15 Dose: Not Given Lorazepam (Ativan Tab(*)) 0 - 6 mg PO .PER [facility] PROTOCOL [facility]; Protocol Multivitamins/Minerals (Theragran/Minerals Tab*) 1 tab PO DAILY [facility] Last Admin: 11/07/19 12:16 Dose: Not Given Nicotine (Nicotine Patch 21 Mg/24 Hr*) 1 patch TRANSDERM DAILY [facility] Last Admin: 11/07/19 08:28 Dose: 1 patch Nicotine Polacrilex (Nicotine Gum*) 4 mg PO Q2H PRN PRN Reason: CRAVING Last Admin: 11/07/19 14:13 Dose: 4 mg Pharmacy Profile Note (Nicotine Patch Removal Note*) 1 note PATCH OFF 2100 [facility] Last Admin: 11/07/19 02:00 Dose: Not Given Thiamine HCl (Vitamin B-1 Tab*) 100 mg PO DAILY [facility] Last Admin: 11/07/19 12:16 Dose: Not Given - Discharge Plan Discharge Plan: Inpatient Hospitalization
[2019-11-07] MEDS: ARIPiprazole TAB* 5 MG PO SCH (21:57)
[2019-11-08 08:29] LABS: HDL Cholesterol 43.3 mg/dL
[2019-11-08] MEDS: Multivitamins/Minerals TAB PO SCH (09:32)
[2019-11-08] MEDS: Folic Acid TAB* 1 MG PO SCH (09:32)
[2019-11-08] MEDS: Thiamine TAB* 100 MG TAB PO SCH (09:32)
[2019-11-08] MEDS: Nicotine PATCH 21 MG/24 HR* PATCH TRANSDERM SCH (09:32)
[2019-11-08] MEDS: Nicotine* 4MG (FRUIT FLAVOR) GUM PO PRN ×3 (10:28→16:59)
--- NOTE | 2019-11-08 14:30 | PN ---
Subjective - Subjective Date of Service: 11/08/19 Service Type: 54888 Hosp care 15 min low complexity Subjective: Luanne is seen in weekend coverage for NPP, Beckie Patel. The patient is laying in her room, appearing guarded and not very forthcoming. Staff reports that she was quite bizarre this morning, stating that a male peer on the unit ( [employer] is her father. She has started oral aripiprazole and has no complaints about this. She denies SI or HI but is oddly related. Objective - General Observations Appearance: Well Groomed Appears Stated Age: Yes Stature: WNL Posture: Tense Eye Contact: Avoidant Behavior/Activity: Peculiar - Interaction Observations Attitude Towards Examiner: Evasive Stated Mood: Dysphoric Affect: Flat Speech Pattern/Tone: Delayed Thought Process: Impoverished Thought Content: Paranoid Thought Process: Lethality: Paranoid Ideation Hallucination Type: None Delusion Type: Persecution - Cognitive Function Orientation: A&O x 4 Level of Consciousness: Awake Cognition: WNL Estimated Intelligence: Normal Insight: WNL Judgment Within Normal Limits: Yes - Medication Compliance Cooperative with Inpatient Medication Regimen: Yes - Group Participation Participates in Group Activities: Yes Assessment - Assessment Merits Inpatient Hospitalization: For Immediate Safety, For Stabilization Inpatient DSM-V Dx: F15.159 Clinical Impression: 29yo wf, domiciled, disabled with known history of schizophrenia and substance abuse. She presented to [facility] when driven there by a stranger after acting bizarrely in a laundromat. She was combative and agitated in ED, thus received emergency medication and transported to [facility] for psychiatric admission. She is floridly psychotic and endorses latter day and persecutory delusions. She merits hospitalization for immediate safety and stabilization. Plan - Plan Treatment Plan: Name: LUANNE FERREIRA Birthdate: 1990 [id number] continue acute intensive psychiatric treatment. DC olanzapine. start aripiprazole 5mg qhs. continue other medications as ordered. patient has submitted court request and [facility] is pursuing Treatment Over Objection. Continued Medication Management: Continue Outpt Medication Medications: Current Medications Acetaminophen (Tylenol Tab*) 650 mg PO Q4H PRN PRN Reason: for pain; or Temp >101 F Al Hydrox/Mg Hydrox/Simethicone (Maalox Plus*) 30 ml PO Q4H PRN PRN Reason: INDIGESTION Aripiprazole (Abilify Tab*) 5 mg PO BEDTIME [facility] Last Admin: 11/07/19 21:57 Dose: 5 mg Chlorpromazine HCl (Thorazine Tab*) 100 mg PO Q6H PRN PRN Reason: AGITATION Last Admin: 11/07/19 14:38 Dose: 100 mg Folic Acid (Folvite Tab*) 1 mg PO DAILY [facility] Last Admin: 11/08/19 09:32 Dose: 1 mg Lorazepam (Ativan Tab(*)) 0 - 6 mg PO .PER [facility] PROTOCOL [facility]; Protocol Multivitamins/Minerals (Theragran/Minerals Tab*) 1 tab PO DAILY [facility] Last Admin: 11/08/19 09:32 Dose: 1 tab Nicotine (Nicotine Patch 21 Mg/24 Hr*) 1 patch TRANSDERM DAILY [facility] Last Admin: 11/08/19 09:32 Dose: 1 patch Nicotine Polacrilex (Nicotine Gum*) 4 mg PO Q2H PRN PRN Reason: CRAVING Last Admin: 11/08/19 12:46 Dose: 4 mg Pharmacy Profile Note (Nicotine Patch Removal Note*) 1 note PATCH OFF 2100 [facility] Last Admin: 11/07/19 22:18 Dose: 1 note Thiamine HCl (Vitamin B-1 Tab*) 100 mg PO DAILY [facility] Last Admin: 11/08/19 09:32 Dose: 100 mg - Discharge Plan Discharge Plan: Inpatient Hospitalization Lab Results - Lab Results Lab Results: 11/08/19 11/08/19 08:07 08:07 Hemoglobin A1c 4.9 Triglycerides 88 Cholesterol 132 LDL Cholesterol 71 HDL Cholesterol 43.3
[2019-11-08] MEDS ORDERED: chlorproMAZINE TAB* 50 MG ONE (16:58)
[2019-11-08] MEDS ORDERED: chlorproMAZINE TAB* 100 MG PO PRN (20:00)
[2019-11-09] MEDS: Nicotine Patch Removal NOTE PATCH OFF SCH ×2 (00:28→20:27)
[2019-11-09] MEDS: ARIPiprazole TAB* 5 MG PO SCH ×2 (00:29→20:24)
[2019-11-09] MEDS: Nicotine PATCH 21 MG/24 HR* PATCH TRANSDERM SCH (07:32)
[2019-11-09] MEDS: Thiamine TAB* 100 MG TAB PO SCH (08:47)
[2019-11-09] MEDS: Folic Acid TAB* 1 MG PO SCH (08:47)
[2019-11-09] MEDS: Multivitamins/Minerals TAB PO SCH (08:47)
[2019-11-09] MEDS: Nicotine* 4MG (FRUIT FLAVOR) GUM PO PRN ×5 (08:48→20:23)
[2019-11-10] MEDS: Nicotine PATCH 21 MG/24 HR* PATCH TRANSDERM SCH (08:49)
[2019-11-10] MEDS: Thiamine TAB* 100 MG TAB PO SCH (08:50)
[2019-11-10] MEDS: Folic Acid TAB* 1 MG PO SCH (08:50)
[2019-11-10] MEDS: Multivitamins/Minerals TAB PO SCH (08:50)
--- NOTE | 2019-11-10 11:57 | PN ---
Subjective - Subjective Date of Service: 11/10/19 Service Type: 05181 Hosp care 25 min moderate complexity Subjective: Over the weekend, patient was destructive in her room and voiced paranoid delusions along with threats of violence towards staff. Today, patient is lying on couch resting and pleasant upon approach. She states that she is feeling "better" and attributes recent behaviors on menstrual cycle. She states "I lose my mind every month." She is vague when asked about thoughts of being poisoned. She endorses poor insight into recent substance use. She does identify with dx of bipolar disorder and states that she is better able to avoid drug use when she is "on my meds." She agrees to initiate GHOTRA of aripiprazole and states understanding of regimen: oral dose of 30mg, along with Initio 675mg injection and Aristada 882mg injection. Objective - General Observations Appearance: Well Groomed Stature: WNL Posture: Slumped Eye Contact: Average Behavior/Activity: WNL - Interaction Observations Attitude Towards Examiner: Cooperative Stated Mood: Dysphoric Affect: Flat Speech Pattern/Tone: Clear, Appropriate, Quiet Volume Thought Process: Coherent Perception: WNL Thought Content: Paranoid, Grandiose Thought Process: Lethality: Paranoid Ideation Hallucination Type: Denies Delusion Type: Persecution, Grandeur - Cognitive Function Orientation: A&O x 4 Level of Consciousness: Alert Cognition: Impaired Attention/Concentration Estimated Intelligence: Normal Insight: Difficulty Acknowledging Presence of Psyciatric Problems Judgment Within Normal Limits: No Ability to Make Reasonable Decisions: Moderately Impaired - Medication Compliance Cooperative with Inpatient Medication Regimen: Yes - Group Participation Participates in Group Activities: Partial Assessment - Assessment Merits Inpatient Hospitalization: For Immediate Safety, For Stabilization Inpatient DSM-V Dx: F15.159 Clinical Impression: 29yo wf, domiciled, disabled with known history of schizophrenia and substance abuse. She presented to [facility] when driven there by a stranger after acting bizarrely in a laundromat. She was combative and agitated in ED, thus received emergency medication and transported to [facility] for psychiatric admission. She presented as floridly psychotic, along with uatsdin and persecutory delusions. She merits hospitalization for immediate safety and stabilization. Plan - Plan Treatment Plan: Name: MARY FERREIRA Birthdate: 1990 [id number] continue acute intensive psychiatric treatment. Give aripiprazole GHOTRA boosters along with one time dose of 30mg PO. patient rescinded court request; therefore retention and TOO cancelled. discharge to include outpatient referrals Continued Medication Management: Start Medication Medications: Current Medications Acetaminophen (Tylenol Tab*) 650 mg PO Q4H PRN PRN Reason: for pain; or Temp >101 F Al Hydrox/Mg Hydrox/Simethicone (Maalox Plus*) 30 ml PO Q4H PRN PRN Reason: INDIGESTION Aripiprazole (Abilify Tab*) 10 mg PO BEDTIME [facility] Chlorpromazine HCl (Thorazine Tab*) 100 mg PO Q6H PRN PRN Reason: AGITATION Multivitamins/Minerals (Theragran/Minerals Tab*) 1 tab PO DAILY [facility] Last Admin: 11/10/19 08:50 Dose: 1 tab Nicotine (Nicotine Patch 21 Mg/24 Hr*) 1 patch TRANSDERM DAILY [facility] Last Admin: 11/10/19 08:49 Dose: 1 patch Nicotine Polacrilex (Nicotine Gum*) 4 mg PO Q2H PRN PRN Reason: CRAVING Last Admin: 11/09/19 20:23 Dose: 4 mg Pharmacy Profile Note (Nicotine Patch Removal Note*) 1 note PATCH OFF 2100 [facility] Last Admin: 11/09/19 20:27 Dose: Not Given - Discharge Plan Discharge Plan: Inpatient Hospitalization
[2019-11-10] MEDS ORDERED: ARIPiprazole TAB* 15 MG PO ONE (13:44)
[2019-11-10] MEDS: Nicotine* 4MG (FRUIT FLAVOR) GUM PO PRN ×2 (14:57→16:35)
[2019-11-10] MEDS ORDERED: chlorproMAZINE INJ* 25 MG/ML 2 ML (50 MG) ONE (17:33)
[2019-11-10] MEDS ORDERED: chlorproMAZINE INJ* 25 MG/ML 2 ML (50 MG) IM ONE (18:00)
[2019-11-10] MEDS ORDERED: ARIPiprazole TAB* 5 MG PO SCH (21:00)
[2019-11-10] MEDS: Nicotine Patch Removal NOTE PATCH OFF SCH (23:42)
[2019-11-11] MEDS: Multivitamins/Minerals TAB PO SCH (08:27)
[2019-11-11] MEDS: Nicotine PATCH 21 MG/24 HR* PATCH TRANSDERM SCH (08:27)
--- NOTE | 2019-11-11 09:51 | PN ---
Subjective - Subjective Date of Service: 11/11/19 Subjective: Patient reported having "a hard time" to staff last evening but declined to elaborate. She refused oral prn medication and requested that it be given IM. Today, patient sleeping at time of attempted interview. Objective - General Observations Appearance: Unkempt Stature: WNL Posture: Other (See Comment) - lying down/sleeping Eye Contact: Other (See Comment) - none- sleeping Behavior/Activity: Impulsive - Cognitive Function Insight: Difficulty Acknowledging Presence of Psyciatric Problems Judgment Within Normal Limits: No Ability to Make Reasonable Decisions: Serverely Impaired - Medication Compliance Cooperative with Inpatient Medication Regimen: Yes - Group Participation Participates in Group Activities: Partial Assessment - Assessment Merits Inpatient Hospitalization: For Immediate Safety, For Stabilization Inpatient DSM-V Dx: F15.159 Clinical Impression: 29yo wf, domiciled, disabled with known history of schizophrenia and substance abuse. She presented to [facility] when driven there by a stranger after acting bizarrely in a laundromat. She was combative and agitated in ED, thus received emergency medication and [place] [facility] [place]. She presented as floridly psychotic, along with zoroastrianism and persecutory delusions. She merits hospitalization for immediate safety and stabilization. Plan - Plan Treatment Plan: Name: MARY FERREIRA Birthdate: 1990 [id number] continue acute intensive psychiatric treatment. Give aripiprazole GHOTRA boosters along with one time dose of 30mg PO. patient rescinded court request; therefore retention and TOO cancelled. discharge to include outpatient referrals Continued Medication Management: Start Medication Medications: Current Medications Acetaminophen (Tylenol Tab*) 650 mg PO Q4H PRN PRN Reason: for pain; or Temp >101 F Last Admin: 11/11/19 08:27 Dose: 650 mg Al Hydrox/Mg Hydrox/Simethicone (Maalox Plus*) 30 ml PO Q4H PRN PRN Reason: INDIGESTION Chlorpromazine HCl (Thorazine Tab*) 100 mg PO Q6H PRN PRN Reason: AGITATION Multivitamins/Minerals (Theragran/Minerals Tab*) 1 tab PO DAILY [facility] Last Admin: 11/11/19 08:27 Dose: 1 tab Nicotine (Nicotine Patch 21 Mg/24 Hr*) 1 patch TRANSDERM DAILY [facility] Last Admin: 11/11/19 08:27 Dose: 1 patch Nicotine Polacrilex (Nicotine Gum*) 4 mg PO Q2H PRN PRN Reason: CRAVING Last Admin: 11/10/19 16:35 Dose: 4 mg Pharmacy Profile Note (Nicotine Patch Removal Note*) 1 note PATCH OFF 2099 [facility] Last Admin: 11/10/19 23:42 Dose: Not Given - Discharge Plan Discharge Plan: Inpatient Hospitalization
[2019-11-11] MEDS ORDERED: Ibuprofen TAB* 600 MG PO PRN (11:16)
[2019-11-11] MEDS: Nicotine* 4MG (FRUIT FLAVOR) GUM PO PRN ×3 (11:19→17:05)
[2019-11-11] MEDS: Nicotine Patch Removal NOTE PATCH OFF SCH (21:14)
[2019-11-12] MEDS: Nicotine* 4MG (FRUIT FLAVOR) GUM PO PRN ×5 (06:56→19:21)
[2019-11-12] MEDS: Multivitamins/Minerals TAB PO SCH (07:40)
[2019-11-12] MEDS: Nicotine PATCH 21 MG/24 HR* PATCH TRANSDERM SCH (07:40)
--- NOTE | 2019-11-12 12:52 | PN ---
Subjective - Subjective Date of Service: 11/12/19 Service Type: [id number] Hosp care 15 min low complexity Subjective: Patient is walking about milieu and pleasant upon approach. She states she is feeling "much better" in regards to mood and appetite. She states that she needs to "make a bunch of changes" after this hospitalization. When asked to elaborate, she states she intends to stay away from drugs and try to obtain employment. She reports not wanting to return to [facility] due to them being rude to her in the past. She states that her PCP, Dr Nicholas "is really good" and has told her in the past she would prescribe psychiatric medications. She reports being unsure about bipolar diagnosis and again attributes symptoms to menstrual cycle. Luanne allows radio script writer to collaborate with Dr Nicholas to discuss continuation of care and Luanne's inquiry about starting control. Luanne is receptive to suggestion for outpatient substance use treatment referral. She reports desire to increase social interactions, separate from drug use acquaintances. Objective - General Observations Appearance: Well Groomed Stature: Thin Posture: WNL Eye Contact: Avoidant Behavior/Activity: WNL - Interaction Observations Attitude Towards Examiner: Cooperative Stated Mood: Euthymic Affect: Bright Speech Pattern/Tone: Clear, Appropriate, Normal Volume Thought Process: Coherent, Goal Directed Perception: WNL Thought Content: WNL Hallucination Type: Denies Delusion Type: Denies - Cognitive Function Orientation: A&O x 4 Level of Consciousness: Alert Cognition: WNL Estimated Intelligence: Normal Insight: Difficulty Acknowledging Presence of Psyciatric Problems Judgment Within Normal Limits: No Ability to Make Reasonable Decisions: Mildly Impaired - Medication Compliance Cooperative with Inpatient Medication Regimen: Yes - Group Participation Participates in Group Activities: Partial Assessment - Assessment Merits Inpatient Hospitalization: For Immediate Safety, For Stabilization, For Discharge Planning, Pending Safe DC Plan Inpatient DSM-V Dx: F15.159 Clinical Impression: 29yo wf, domiciled, disabled with known history of schizophrenia and substance abuse. She presented to [facility] when driven there by a stranger after acting bizarrely in a laundromat. She was combative and agitated in ED, thus received emergency medication and [place] [facility] [place]. She presented as floridly psychotic, along with shinto and persecutory delusions. She merits hospitalization for immediate safety and stabilization. Plan - Plan Treatment Plan: Name: LUANNE FERREIRA Birthdate: 1990 [id number] continue acute intensive psychiatric treatment. may decrease to 30min obs. Given aripiprazole GHOTRA boosters along with one time dose of 30mg PO on 11/10/19. patient rescinded court request; therefore retention and TOO cancelled. discharge to include outpatient referrals for mental health and substance use treatment. collaboration with PCP. Medications: Current Medications Acetaminophen (Tylenol Tab*) 650 mg PO Q4H PRN PRN Reason: for pain; or Temp >101 F Last Admin: 11/11/19 08:27 Dose: 650 mg Al Hydrox/Mg Hydrox/Simethicone (Maalox Plus*) 30 ml PO Q4H PRN PRN Reason: INDIGESTION Chlorpromazine HCl (Thorazine Tab*) 100 mg PO Q6H PRN PRN Reason: AGITATION Ibuprofen (Motrin Tab*) 600 mg PO Q4HR PRN PRN Reason: PAIN - MODERATE Last Admin: 11/11/19 18:50 Dose: 600 mg Multivitamins/Minerals (Theragran/Minerals Tab*) 1 tab PO DAILY [facility] Last Admin: 11/12/19 07:40 Dose: 1 tab Nicotine (Nicotine Patch 21 Mg/24 Hr*) 1 patch TRANSDERM DAILY [facility] Last Admin: 11/12/19 07:40 Dose: 1 patch Nicotine Polacrilex (Nicotine Gum*) 4 mg PO Q2H PRN PRN Reason: CRAVING Last Admin: 11/12/19 10:50 Dose: 4 mg Pharmacy Profile Note (Nicotine Patch Removal Note*) 1 note PATCH OFF 2100 [facility] Last Admin: 11/11/19 21:14 Dose: 1 note - Discharge Plan Discharge Plan: Inpatient Hospitalization
[2019-11-12] MEDS: Nicotine Patch Removal NOTE PATCH OFF SCH (20:27)
[2019-11-13] MEDS: Nicotine PATCH 21 MG/24 HR* PATCH TRANSDERM SCH (07:41)
[2019-11-13] MEDS: Multivitamins/Minerals TAB PO SCH (07:41)
[2019-11-13] MEDS: Nicotine* 4MG (FRUIT FLAVOR) GUM PO PRN ×5 (08:35→18:54)
--- NOTE | 2019-11-13 11:48 | PN ---
BSU: Group Therapy Note - Service Type Service Type: 14415 Group Psychotherapy - Cognitive Behavioral Group Note: Luanne briefly engaged in discussion in group this morning. She made appropriate eye contact and expressed relief at conversation regarding discharge tomorrow. She described her hopes of finding a job.
[2019-11-13] MEDS: Nicotine Patch Removal NOTE PATCH OFF SCH (20:41)
[2019-11-14] MEDS: Nicotine* 4MG (FRUIT FLAVOR) GUM PO PRN ×2 (06:08→10:00)
[2019-11-14] MEDS: Nicotine PATCH 21 MG/24 HR* PATCH TRANSDERM SCH (07:05)
[2019-11-14 08:59] VITALS: BP 107/78
[2019-11-14] MEDS: Multivitamins/Minerals TAB PO SCH (09:04)
--- NOTE | 2019-11-14 12:03 | DCNOTE ---
Subjective - Subjective Service Types: [id number] Hosp DC Day Mgmt simple under 30 min Discharge Date: 11/14/19 Subjective: Patient has been safe on all checks and in behavioral control. She makes bizarre statements in regards to angels and the spiritual world. She is quick to say that she is not delusional. She denies SI or passive wish. She states she is agreeable to outpatient MH and substance use treatment. Her parents have been contacted by SW and are agreeable to dc plan. Enrollment Representative spoke with office of patient's PCP, Dr Alyx Nicholas who is not in the office on or fridays. Will call on Sunday to discuss potential of Dr Nicholas continuing Abilify GHOTRA. Objective - General Observations Appearance: Well Groomed Stature: WNL Posture: WNL Eye Contact: Average Behavior/Activity: WNL - Interaction Observations Attitude Towards Examiner: Cooperative Stated Mood: Euthymic Affect: Bright Speech Pattern/Tone: Clear, Appropriate, Normal Volume Thought Process: Coherent Perception: WNL Thought Content: WNL Hallucination Type: Denies Delusion Type: Yazidi - Cognitive Function Orientation: A&O x 4 Level of Consciousness: Alert Cognition: WNL Estimated Intelligence: Normal Insight: WNL Judgment Within Normal Limits: Yes - Medication Compliance Cooperative with Inpatient Medication Regimen: Yes - Group Participation Participates in Group Activities: Yes DC Assessment - Assessment Clinical Impression: 29yo wf, domiciled, disabled with known history of schizophrenia and substance abuse. She presented to [facility] when driven there by a stranger after acting bizarrely in a laundromat. She was combative and agitated in ED, thus received emergency medication and transported to [facility] for psychiatric admission. She presented as floridly psychotic, along with judaism and persecutory delusions. She has accepted initiation of Abilify long acting injection and stabilized in this structured setting. Merits Inpatient Hospitalization: No Clear for Discharge: Adequate Clinical Respons, Acceptable Safety Profile Inpatient DSM-V Dx: F15.159 Discharge Planning - Discharge Planning Discharge Plan: Outpatient Follow Up Outpatient Program: [facility] Recommendations for Continuing Care: Medication Management, Psychotherapy, Substance Abuse Counseling, Routine Metabolic Monitoring, Primary Care Followup Medications: Current Medications Abilify (aristada) injectable boosters doses given on 11/10/19. Patient to continue monthly Abilify injection. Next due on December 09, 2019. Discharge Planning: Prescriptions provided for discharge [] Yes [x] No Follow up care details as per social work arrangements: [facility] Dr Alyx Nicholas Patient response to discharge plan: [x] eager for discharge [x] agreeable with discharge plan [] ambivalent about discharge [] disagrees with discharge today
--- NOTE | 2019-11-14 12:28 | PN ---
BSU: Group Therapy Note - Service Type Service Type: [id number] Group Psychotherapy - Cognitive Behavioral Group Therapy ( CBT):Patient was attentive and participatory in CBT programming this morning, and remained in good behavioral control. Patient expressed positive insights regarding relevant treatment interventions and goals.
--- NOTE | 2019-11-17 15:44 | DS ---
CC: Dr. Alyx Nicholas; [facility]; [facility] in [place] * DISCHARGE SUMMARY: DATE OF ADMISSION: 11/05/19 DATE OF DISCHARGE: 11/14/19 SUPERVISING PSYCHIATRIST: Dr. Kurt Prieto.* (DICTATED BY NIKHIL ANGUIANO NP) DISCHARGE DIAGNOSES: 1. Bipolar I disorder with psychotic features. 2. Amphetamine use disorder. CONDITION AT THE TIME OF DISCHARGE: Improved. The patient has been safe on all checks and in behavioral control. She makes bizarre statements in regards to angels and the spiritual world. She is quick to say that she is not delusional. She denies SI or passive wish. She states that she is agreeable to outpatient mental health and substance use treatment. Her parents have been contacted by Social Work and are agreeable to the discharge plan. The patient did not want to return to [facility], but was agreeable to follow up with the [facility] in [place] and [facility] in [place]. I received a voicemail from the nurse of Dr. Alyx Nicholas stating they would continue her primary care. I am awaiting for a call back to enquire about Dr. Nicholas continuing the monthly Abilify long -acting injection. The patient is discharged to home. MENTAL STATUS EXAM: The patient is a 29-year-old white female, who appears stated age. She is adequately groomed, causally dressed in her own clothing. She is wearing thick black eyeliner, otherwise well groomed. She is alert and oriented x3. Eye contact is good. Speech is soft and articulate. Concentration good. Memory 3/3. Mood is euthymic with full range of affect. She is calm and in behavioral control. There are no psychomotor abnormalities noted. Thought process is goal directed, coherent. Thought content is positive for islam delusions. She denies thoughts of harm towards self or others. She denies auditory or visual hallucinations. Insight and judgment are fair, improved. She appears to have an average intellect and her fund of knowledge is adequate. INSTRUCTIONS GIVEN TO THE PATIENT: A. Medications: Aripiprazole Maintena 400 mg IM q.28 days, due 12/09/19. B. Diet: Regular. C. Activity: Ambulation as tolerated. Tobacco cessation was declined by the patient. There are no pending labs or diagnostic studies. Hemoglobin A1c and lipid panel were within normal limits. D. Followup care: The patient will follow up with [facility] the afternoon of discharge and Dr. Nicholas, primary care. E. Substance use followup: As above, [facility]. HOSPITAL COURSE: Part A. Reason for admission: The patient presented to the emergency department of [facility] in a psychotic state. She was combative and aggressive there requiring chemical restraints and transfer to [facility] ED. The patient presented to the floor very psychotic and unable to care for herself. Chief complaint: "I felt like I was going to ; they are poisoning me." History of Illness: Luanne is a 29-year-old white female single without children, domiciled, disabled, who has a history of schizophrenia and substance abuse. According to the ED, she presented with a knife in her pocket that was removed. She admitted to recent IV drug use and is noted to have infiltrated needle duke on arms bilaterally. The patient had voiced suicidal ideation to family members. She has voiced paranoid ideation since arrival to our ED. She was disorganized and agitated while in the ED as well. Upon presentation, the patient is restless and fidgety. She reports that she is being poisoned that she was trying to inject methamphetamine, but someone gave her poison instead she points to infiltration and states this is why it did not go into her veins because it is poison. She endorsed active visual and audio hallucinations during conversation. She states that she does not need psychiatric treatment anymore because she let this thing take over "now it is just me and him." When I asked who this is, she states it is "the father of lies " and later states that she is referring to Rocael. The patient states that she would rather not do drugs and also includes medications in this category. She refers to them as being destructive to her brain and heart and she also states that she has a "spiritual thing going." I asked about support people in her life and that is when she identifies that they are in the room and that I cannot see them. The patient does not recall why she was brought to the hospital. She states that she was driven to the hospital by a female stranger [facility]. She reports that she has a history of nightmares, but no longer has them. She states she primarily sleeps during the day. She states she uses IV methamphetamine because it calms her down. She denies heroin use since 2013. She reports that she does not smoke marijuana anymore. When I asked about her last use, she states that it was "a few days ago, a week ago or 2 weeks ago." She smokes cigarettes 1 pack per day. The patient submitted a court request for retention after meeting with this financial underwriter. Part B. Psychiatric treatment rendered: The patient was admitted to adult behavioral services unit on involuntary status. Code status was full. She was placed on 15-minute checks for her safety. We monitored her via [facility] protocol and states she was minimizing alcohol use. We started olanzapine for immediate stabilization. She has a history of doing well on long-acting injectable Abilify. The patient was compliant with oral olanzapine for the first few days of her admission. According to staff, the patient was alternately irritable and isolative. She presented as guarded and labile. She tells financial underwriter "I do not know who to trust." She denied recent methamphetamine use and reported she was in a spiritual crisis. She expressed disbelief when I repeat statements that she had made to me the previous day. She stated that her parents were not allowed to be contacted because they and others are poisoning her. The patient agreed to change to Abilify as she recalled no adverse effects from taking this medication in the past. She mentioned a diagnosis of bipolar disorder and quickly attempted to talk about how this diagnosis might not be pertinent for her. The patient tolerated oral Abilify. She demonstrated improved insight. She reported agreeing to participate in treatment. She reported feeling much better. She told financial underwriter that she needs to make better changes after this hospitalization and when asked to elaborate, she states she intends to stay away from drugs and try to obtain employment. She told financial underwriter that her primary care provider, Dr. Nicholas "is really good" and had told her in the past that she would prescribe psychiatric medications. The patient attributed her psychiatric symptoms to having recently had her period and wanted to consider control for this reason. She was receptive to suggestion for outpatient substance use treatment and reported desire to increase social interactions separate from drug use acquaintances. She accepted and was given aripiprazole 30 mg oral along with the 2 booster injections of Initio and Aristada 882 mg. The patient was safe on all checks and in behavioral control. She continued to make statements in regards to islam delusions. She was no longer endorsing paranoid ideation of being poisoned. She had gained some insight in regards to need for psychiatric medications and abstinence from drug use. She denied suicidal ideation. She was completing ADLs, reported sleep and appetite to be good. Due to obligation to treat in least restrictive setting, the patient was discharged and her parents were agreeable to discharge plan. They agreed to bead picker the patient at 1 p.m. on 11/14/19 in order to transport her to [facility]. NIKHIL ANGUIANO, METAL ENGRAVER [id number]/CPS #: [id number]
== END 2019-11-14 13:15 | disposition home or self-care (01) | DRG 885 ==
LOC: ED 01:55 → BSU 15:17
PROVIDERS: ADMIT Psychiatry & Neurology Psychiatry; ATTEND Psychiatry & Neurology Psychiatry
PROC: GZHZZZZ Group Psychotherapy (ICD-10-PCS; principal; 2019-11-13)
DX: F31.5 Bipolar disorder, current episode depressed, severe, with psychotic features (principal); F41.9 Anxiety disorder, unspecified; F15.10 Other stimulant abuse, uncomplicated; F17.210 Nicotine dependence, cigarettes, uncomplicated; F12.10 Cannabis abuse, uncomplicated; F60.3 Borderline personality disorder; Z91.5 Personal history of self-harm; Z91.410 Personal history of adult physical and sexual abuse
CPT/HCPCS: 36415; 80061; 83036; 90853; 99222; 99231; 99232; 99238; 99284; A9270-GY

== ENCOUNTER 2020-04-04 14:52 | Inpatient (IN) ==
[2020-04-04] MEDS ORDERED: LORazepam 2 mg VIAL 1 ml IM ONE (17:13)
[2020-04-04] MEDS ORDERED: Haloperidol 5 mg/ml SDV IV/IM 5 MG/ML AMP IM ONE (17:13)
[2020-04-04] MEDS ORDERED: diPHENhydraMINE IV 50 MG/ML 1 ml VIAL (BENADRYL) IM ONE (17:13)
[2020-04-04] MEDS ORDERED: LORazepam 2 mg VIAL 1 ml ONE (17:15)
[2020-04-04] MEDS ORDERED: Haloperidol 5 mg/ml SDV IV/IM 5 MG/ML AMP ONE (17:18)
[2020-04-04] MEDS ORDERED: diPHENhydraMINE IV 50 MG/ML 1 ml VIAL (BENADRYL) ONE (17:18)
[2020-04-04 19:14] LABS: ABS Basophils 0.1 10^3/ul (0-0.2); ABS Eosinophils 0.1 10^3/ul (0-0.6); ABS Lymphocytes 2.1 10^3/ul (1.0-4.8); ABS Monocytes 0.7 10^3/ul (0-0.8); Eosinophil % 1.7 %; Hematocrit 34 % (35-47); Hemoglobin 11.7 g/dL (12.0-16.0); Lymphocyte % 29.2 %; Mean Corpuscular HGB Conc 34 g/dL (31-36); Mean Corpuscular Hemoglobin 31 pg (27-31); Mean Corpuscular Volume 92 fL (80-97); Mean Platelet Volume 7.9 fL (7.4-10.4); Nucleated Red Blood Cells % 0.1; Platelet Count 232 10^3/uL (150-450); Red Blood Count 3.74 10^6 /uL (3.70-4.87); Red Cell Distribution Width 14 % (10-15); White Blood Count 7.1 10^3/uL (3.5-10.8)
[2020-04-04 19:45] LABS: Albumin 4.1 g/dL (3.2-5.2); Anion Gap 6 mmol/L (2-11); CO2 Carbon Dioxide 25 mmol/L (22-32); Chloride 107 mmol/L (101-111); Potassium 3.6 mmol/L (3.5-5.0); Sodium 138 mmol/L (135-145)
[2020-04-04 19:51] LABS: ALT 6 U/L (7-52); AST 11 U/L (13-39); Albumin/Globulin Ratio 1.6 (1-3); Alkaline Phosphatase 46 U/L (34-104); BUN/Creatinine Ratio 13.3 (8-20); Blood Urea Nitrogen 11 mg/dL (6-24); EGFR African American 98.3 (>60); EGFR Non-African American 81.3 (>60); Globulin 2.6 g/dL (2-4); Glucose 90 mg/dL (70-100); Total Protein 6.7 g/dL (6.4-8.9)
[2020-04-04 20:03] LABS: Urine Appearance Cloudy; Urine Bilirubin Negative (Negative); Urine Blood Negative (Negative); Urine Color Yellow; Urine Glucose Negative (Negative); Urine Ketones Trace (Negative); Urine Nitrite Negative (Negative); Urine Protein Negative (Negative); Urine Specific Gravity 1.021 (1.010-1.030); Urine Urobilinogen Negative (Negative)
[2020-04-04 20:18] LABS: Acetaminophen < 15 mcg/mL; Alcohol, S 10 mg/dL (<10); Salicylate < 2.50 mg/dL (<30)
[2020-04-04 20:33] LABS: Urine Benzodiazepine Screen None Detected (None Detect); Urine Opiates Screen Presumptive Positive (None Detect)
[2020-04-04 20:34] LABS: TSH (Thyroid Stimulating Horm) 1.37 mcIU/mL (0.34-5.60)
[2020-04-04 20:53] LABS: HCG Pregnancy < 0.60 mIU/mL
[2020-04-05] MEDS ORDERED: Al Hydrox/Mg Hydrox/Simet LIQ 30 ML UDC PO PRN (00:13)
[2020-04-05] MEDS: Nicotine PATCH 21 MG/24 HR PATCH TRANSDERM SCH (10:16)
[2020-04-05] MEDS: Vitamin THERAPEUTIC TAB PO SCH (10:16)
[2020-04-05] MEDS ORDERED: LORazepam 1 mg TAB (*) ONE (11:39)
[2020-04-05] MEDS ORDERED: LORazepam 1 mg TAB (*) PO ONE (11:40)
[2020-04-05] MEDS ORDERED: LORazepam 2 mg VIAL 1 ml IM PRN (11:40)
[2020-04-05] MEDS ORDERED: Haloperidol 5 mg/ml SDV IV/IM 5 MG/ML AMP IM PRN (11:40)
[2020-04-05] MEDS ORDERED: Lorazepam PYXIS KEY ONE (11:46)
[2020-04-05] MEDS ORDERED: Haloperidol 5 mg/ml SDV IV/IM 5 MG/ML AMP ONE (11:46)
[2020-04-05] MEDS ORDERED: LORazepam 2 mg VIAL 1 ml ONE (11:46)
[2020-04-06] MEDS: Vitamin THERAPEUTIC TAB PO SCH (11:04)
[2020-04-06] MEDS: Nicotine PATCH 21 MG/24 HR PATCH TRANSDERM SCH ×2 (11:04→12:53)
[2020-04-06] MEDS ORDERED: OLANzapine 5 mg TAB*ODT ONE (12:27)
[2020-04-06] MEDS ORDERED: Benzocaine/Menthol LOZ ONE (12:27)
[2020-04-06] MEDS: Nicotine GUM 2MG FRUIT FLAVOR PO PRN ×2 (12:53→17:23)
[2020-04-06] MEDS ORDERED: OLANzapine 5 mg TAB*ODT PO PRN (13:02)
[2020-04-06] MEDS ORDERED: Benzocaine/Menthol LOZ PO PRN ×2 (15:08→17:42)
[2020-04-06] MEDS: LORazepam 1 mg TAB (*) PO PRN (17:24)
[2020-04-07] MEDS: Nicotine PATCH 21 MG/24 HR PATCH TRANSDERM SCH (10:08)
[2020-04-07] MEDS: Nicotine GUM 2MG FRUIT FLAVOR PO PRN ×3 (10:08→17:07)
[2020-04-07] MEDS: Vitamin THERAPEUTIC TAB PO SCH (10:09)
[2020-04-07] MEDS: LORazepam 1 mg TAB (*) PO PRN (14:31)
[2020-04-08] MEDS: Nicotine GUM 2MG FRUIT FLAVOR PO PRN ×4 (10:21→18:44)
[2020-04-08] MEDS: Nicotine PATCH 21 MG/24 HR PATCH TRANSDERM SCH (10:21)
[2020-04-08] MEDS: Vitamin THERAPEUTIC TAB PO SCH (10:22)
[2020-04-08] MEDS: LORazepam 1 mg TAB (*) PO PRN ×2 (15:09→19:09)
[2020-04-09 08:11] LABS: HDL Cholesterol 38.3 mg/dL
[2020-04-09] MEDS: Nicotine PATCH 21 MG/24 HR PATCH TRANSDERM SCH (08:50)
[2020-04-09] MEDS: Vitamin THERAPEUTIC TAB PO SCH (08:51)
[2020-04-09] MEDS: Nicotine GUM 2MG FRUIT FLAVOR PO PRN ×2 (09:42→18:17)
[2020-04-09] MEDS: LORazepam 1 mg TAB (*) PO PRN (18:16)
[2020-04-10] MEDS: Nicotine PATCH 21 MG/24 HR PATCH TRANSDERM SCH (08:33)
[2020-04-10] MEDS: Nicotine GUM 2MG FRUIT FLAVOR PO PRN ×4 (08:34→19:50)
[2020-04-10] MEDS: Vitamin THERAPEUTIC TAB PO SCH (08:35)
[2020-04-10] MEDS: LORazepam 1 mg TAB (*) PO PRN (13:35)
[2020-04-11] MEDS: Nicotine PATCH 21 MG/24 HR PATCH TRANSDERM SCH (07:41)
[2020-04-11] MEDS: Vitamin THERAPEUTIC TAB PO SCH (07:41)
[2020-04-11] MEDS: Nicotine GUM 2MG FRUIT FLAVOR PO PRN ×4 (09:17→18:04)
[2020-04-11] MEDS: LORazepam 1 mg TAB (*) PO PRN (18:27)
[2020-04-12] MEDS: Vitamin THERAPEUTIC TAB PO SCH (07:35)
[2020-04-12] MEDS: Nicotine PATCH 21 MG/24 HR PATCH TRANSDERM SCH (07:36)
[2020-04-12] MEDS: Nicotine GUM 2MG FRUIT FLAVOR PO PRN ×3 (07:37→12:08)
[2020-04-12 09:08] VITALS: BP 98/61
[2020-04-12] MEDS: LORazepam 1 mg TAB (*) PO PRN (13:07)
== END 2020-04-12 15:40 | disposition home or self-care (01) | DRG 885 ==
LOC: ED 14:52 → BSU 23:31
PROVIDERS: ADMIT Psychiatry & Neurology Psychiatry; ATTEND Psychiatry & Neurology Psychiatry

== ENCOUNTER 2020-09-19 10:21 | Inpatient (IN) ==
[2020-09-19] MEDS ORDERED: diPHENhydraMINE IV 50 MG/ML 1 ml VIAL (BENADRYL) IM ONE (10:28)
[2020-09-19] MEDS ORDERED: Haloperidol 5 mg/ml SDV IV/IM 5 MG/ML AMP IM ONE (10:28)
[2020-09-19] MEDS ORDERED: diPHENhydraMINE IV 50 MG/ML 1 ml VIAL (BENADRYL) IV ONE (10:28)
[2020-09-19] MEDS ORDERED: LORazepam 2 mg VIAL 1 ml IM ONE (10:28)
[2020-09-19] MEDS ORDERED: Lorazepam PYXIS KEY PRN (10:28)
[2020-09-19] MEDS ORDERED: Lorazepam PYXIS KEY ONE (10:32)
[2020-09-19 12:09] LABS: Hematocrit 41 % (35-47); Mean Corpuscular HGB Conc 34 g/dL (31-36); Mean Corpuscular Hemoglobin 31 pg (27-31); Mean Corpuscular Volume 90 fL (80-97); Mean Platelet Volume 7.8 fL (7.4-10.4); Platelet Count 306 10^3/uL (150-450); Red Blood Count 4.57 10^6 /uL (3.70-4.87); Red Cell Distribution Width 13 % (10-15); White Blood Count 7.3 10^3/uL (3.5-10.8)
[2020-09-19 12:17] LABS: ABS Basophils 0.1 10^3/ul (0-0.2); ABS Eosinophils 0.3 10^3/ul (0-0.6); ABS Lymphocytes 1.8 10^3/ul (1.0-4.8); ABS Monocytes 0.6 10^3/ul (0-0.8); ABS Neutrophils 4.4 10^3/ul (1.5-7.7); Eosinophil % 4.2 %; Lymphocyte % 25.5 %
[2020-09-19 12:22] LABS: ALT 9 U/L (7-52); AST 17 U/L (13-39); Albumin 4.5 g/dL (3.2-5.2); Albumin/Globulin Ratio 1.4 (1-3); Alkaline Phosphatase 57 U/L (34-104); Anion Gap 8 mmol/L (2-11); BUN/Creatinine Ratio 21.8 (8-20); Blood Urea Nitrogen 22 mg/dL (6-24); CO2 Carbon Dioxide 24 mmol/L (22-32); Calcium 9.7 mg/dL (8.6-10.3); Chloride 104 mmol/L (101-111); EGFR African American 77.9 (>60); EGFR Non-African American 64.4 (>60); Globulin 3.3 g/dL (2-4); Glucose 66 mg/dL (70-100); Potassium 3.8 mmol/L (3.5-5.0); Sodium 136 mmol/L (135-145); Total Protein 7.8 g/dL (6.4-8.9)
[2020-09-19 12:29] LABS: HCG Pregnancy < 0.60 mIU/mL
[2020-09-19 12:52] LABS: Acetaminophen < 15 mcg/mL; Alcohol, S < 10 mg/dL (<10); Salicylate < 2.50 mg/dL (<30)
[2020-09-19 20:14] LABS: Urine Appearance Cloudy; Urine Bilirubin Negative (Negative); Urine Blood Negative (Negative); Urine Color Yellow; Urine Glucose Negative (Negative); Urine Ketones 1+ (Negative); Urine Nitrite Negative (Negative); Urine Protein 2+(100 mg/dL) (Negative); Urine Urobilinogen Negative (Negative)
[2020-09-19 20:18] LABS: Urine Bacteria Absent (Absent); Urine Red Blood Cell Trace(0-2/hpf) (Absent); Urine Squamous Epithelial Cell Present (Absent); Urine White Blood Cell Trace(0-5/hpf) (Absent)
[2020-09-19 20:34] LABS: Urine Benzodiazepine Screen None Detected (None Detect); Urine Cannabinoids Screen Presumptive Positive (None Detect); Urine Opiates Screen None Detected (None Detect)
[2020-09-20] MEDS ORDERED: LORazepam 2 mg VIAL 1 ml IM PRN (06:02)
[2020-09-20] MEDS ORDERED: diPHENhydraMINE IV 50 MG/ML 1 ml VIAL (BENADRYL) IM PRN (06:02)
[2020-09-20] MEDS ORDERED: Haloperidol 5 mg/ml SDV IV/IM 5 MG/ML AMP IM PRN (06:02)
[2020-09-20] MEDS: Nicotine PATCH 14 MG/24 HR PATCH TRANSDERM SCH (09:18)
[2020-09-20] MEDS: Vitamin THERAPEUTIC TAB PO SCH (09:18)
[2020-09-21] MEDS: Nicotine PATCH 14 MG/24 HR PATCH TRANSDERM SCH (12:11)
[2020-09-21] MEDS: Vitamin THERAPEUTIC TAB PO SCH (12:12)
[2020-09-21] MEDS: OLANzapine 5 mg TAB*ODT PO PRN (16:27)
[2020-09-22] MEDS: Nicotine PATCH 14 MG/24 HR PATCH TRANSDERM SCH (08:36)
[2020-09-22] MEDS: Vitamin THERAPEUTIC TAB PO SCH ×2 (08:37→11:42)
[2020-09-22] MEDS: Nicotine GUM 2MG FRUIT FLAVOR PO PRN ×3 (11:41→17:49)
[2020-09-23 08:10] LABS: HDL Cholesterol 44.1 mg/dL
[2020-09-23] MEDS: Vitamin THERAPEUTIC TAB PO SCH (08:58)
[2020-09-23] MEDS: Nicotine PATCH 14 MG/24 HR PATCH TRANSDERM SCH (08:58)
[2020-09-23] MEDS: Nicotine GUM 2MG FRUIT FLAVOR PO PRN ×3 (09:01→17:06)
[2020-09-23] MEDS: OLANzapine 5 mg TAB*ODT PO PRN (17:17)
[2020-09-24] MEDS: Nicotine PATCH 14 MG/24 HR PATCH TRANSDERM SCH (09:20)
[2020-09-24] MEDS: Vitamin THERAPEUTIC TAB PO SCH (09:21)
[2020-09-24] MEDS: Nicotine GUM 2MG FRUIT FLAVOR PO PRN ×2 (09:21→18:05)
[2020-09-25] MEDS: Nicotine PATCH 14 MG/24 HR PATCH TRANSDERM SCH ×2 (06:23→09:11)
[2020-09-25] MEDS: Vitamin THERAPEUTIC TAB PO SCH (09:11)
[2020-09-25] MEDS: Nicotine GUM 2MG FRUIT FLAVOR PO PRN ×2 (13:05→16:29)
[2020-09-26] MEDS: Nicotine GUM 2MG FRUIT FLAVOR PO PRN ×2 (07:39→12:37)
[2020-09-26] MEDS: Nicotine PATCH 14 MG/24 HR PATCH TRANSDERM SCH (07:39)
[2020-09-26] MEDS: Vitamin THERAPEUTIC TAB PO SCH (09:59)
[2020-09-27] MEDS: Nicotine GUM 2MG FRUIT FLAVOR PO PRN ×5 (05:24→19:49)
[2020-09-27] MEDS: Nicotine PATCH 14 MG/24 HR PATCH TRANSDERM SCH (07:21)
[2020-09-27] MEDS: Vitamin THERAPEUTIC TAB PO SCH (07:22)
[2020-09-27] MEDS: OLANzapine 5 mg TAB*ODT PO PRN (18:19)
[2020-09-28] MEDS: Nicotine PATCH 14 MG/24 HR PATCH TRANSDERM SCH (08:45)
[2020-09-28] MEDS: Vitamin THERAPEUTIC TAB PO SCH (08:46)
[2020-09-28] MEDS: Nicotine GUM 2MG FRUIT FLAVOR PO PRN ×2 (09:45→14:35)
[2020-09-29] MEDS: Nicotine GUM 2MG FRUIT FLAVOR PO PRN ×6 (06:56→20:44)
[2020-09-29] MEDS: Nicotine PATCH 14 MG/24 HR PATCH TRANSDERM SCH (08:22)
[2020-09-29] MEDS: Vitamin THERAPEUTIC TAB PO SCH (08:23)
[2020-09-29] MEDS ORDERED: Paliperidone SUSTENNA 234 MG/1.5 ML IM ONE (09:58)
[2020-09-30] MEDS: Nicotine PATCH 14 MG/24 HR PATCH TRANSDERM SCH (07:48)
[2020-09-30] MEDS: Vitamin THERAPEUTIC TAB PO SCH (07:49)
[2020-09-30] MEDS: Nicotine GUM 4MG FRUIT FLAVOR PO PRN ×4 (11:38→19:16)
[2020-10-01] MEDS: Nicotine GUM 4MG FRUIT FLAVOR PO PRN ×6 (02:55→21:00)
[2020-10-01] MEDS: Nicotine PATCH 14 MG/24 HR PATCH TRANSDERM SCH (08:12)
[2020-10-01] MEDS: Vitamin THERAPEUTIC TAB PO SCH (12:39)
[2020-10-02] MEDS: Nicotine GUM 4MG FRUIT FLAVOR PO PRN ×5 (07:03→18:03)
[2020-10-02] MEDS: Nicotine PATCH 14 MG/24 HR PATCH TRANSDERM SCH (08:23)
[2020-10-02] MEDS: Vitamin THERAPEUTIC TAB PO SCH (08:24)
[2020-10-03] MEDS: Nicotine GUM 4MG FRUIT FLAVOR PO PRN ×6 (07:38→19:56)
[2020-10-03] MEDS: Nicotine PATCH 14 MG/24 HR PATCH TRANSDERM SCH (08:30)
[2020-10-03] MEDS: Vitamin THERAPEUTIC TAB PO SCH (08:31)
[2020-10-04] MEDS: Nicotine PATCH 14 MG/24 HR PATCH TRANSDERM SCH (08:27)
[2020-10-04] MEDS: Vitamin THERAPEUTIC TAB PO SCH (08:27)
[2020-10-04] MEDS: Nicotine GUM 4MG FRUIT FLAVOR PO PRN ×3 (09:36→20:17)
[2020-10-04] MEDS ORDERED: Paliperidone SUSTENNA 156 MG/1 ML IM ONE (11:22)
[2020-10-05] MEDS: Nicotine PATCH 14 MG/24 HR PATCH TRANSDERM SCH (08:02)
[2020-10-05] MEDS: Vitamin THERAPEUTIC TAB PO SCH (08:02)
[2020-10-05] MEDS: Nicotine GUM 4MG FRUIT FLAVOR PO PRN ×6 (08:02→21:23)
[2020-10-05] MEDS: OLANzapine 5 mg TAB*ODT PO PRN (22:32)
[2020-10-06] MEDS: Nicotine PATCH 14 MG/24 HR PATCH TRANSDERM SCH (08:27)
[2020-10-06] MEDS: Nicotine GUM 4MG FRUIT FLAVOR PO PRN ×3 (08:28→17:22)
[2020-10-06] MEDS: Vitamin THERAPEUTIC TAB PO SCH (08:28)
[2020-10-06] MEDS: OLANzapine 5 mg TAB*ODT PO PRN (20:11)
[2020-10-07] MEDS: Nicotine PATCH 14 MG/24 HR PATCH TRANSDERM SCH (08:37)
[2020-10-07] MEDS: Vitamin THERAPEUTIC TAB PO SCH (08:37)
[2020-10-07] MEDS: Nicotine GUM 4MG FRUIT FLAVOR PO PRN ×5 (09:41→21:07)
[2020-10-07] MEDS: OLANzapine 5 mg TAB*ODT PO PRN (18:44)
[2020-10-08] MEDS: Nicotine GUM 4MG FRUIT FLAVOR PO PRN ×2 (07:24→10:07)
[2020-10-08] MEDS: Nicotine PATCH 14 MG/24 HR PATCH TRANSDERM SCH (08:17)
[2020-10-08] MEDS: Vitamin THERAPEUTIC TAB PO SCH (08:18)
[2020-10-08] MEDS ORDERED: Polyethylene Glycol 3350 17 GM PACKET PO PRN (10:04)
[2020-10-08] MEDS: OLANzapine 5 mg TAB*ODT PO PRN (10:52)
[2020-10-09] MEDS: Nicotine GUM 4MG FRUIT FLAVOR PO PRN ×3 (07:34→13:05)
[2020-10-09] MEDS: Nicotine PATCH 14 MG/24 HR PATCH TRANSDERM SCH (08:22)
[2020-10-09] MEDS: Vitamin THERAPEUTIC TAB PO SCH (08:23)
[2020-10-09] MEDS: OLANzapine 5 mg TAB*ODT PO PRN (13:34)
[2020-10-10] MEDS: Nicotine GUM 4MG FRUIT FLAVOR PO PRN ×3 (04:47→13:30)
[2020-10-10] MEDS: Nicotine PATCH 14 MG/24 HR PATCH TRANSDERM SCH (07:10)
[2020-10-10] MEDS: Vitamin THERAPEUTIC TAB PO SCH (09:50)
[2020-10-10] MEDS: OLANzapine 5 mg TAB*ODT PO PRN ×2 (10:50→13:30)
[2020-10-11] MEDS: Nicotine GUM 4MG FRUIT FLAVOR PO PRN ×4 (06:49→17:51)
[2020-10-11] MEDS: Nicotine PATCH 14 MG/24 HR PATCH TRANSDERM SCH ×2 (06:49→08:55)
[2020-10-11] MEDS: Vitamin THERAPEUTIC TAB PO SCH (08:55)
[2020-10-11] MEDS: OLANzapine 5 mg TAB*ODT PO SCH ×2 (10:57→21:46)
[2020-10-12] MEDS: Nicotine GUM 4MG FRUIT FLAVOR PO PRN ×4 (05:51→18:07)
[2020-10-12] MEDS: Nicotine PATCH 14 MG/24 HR PATCH TRANSDERM SCH (07:16)
[2020-10-12] MEDS: OLANzapine 5 mg TAB*ODT PO SCH ×2 (07:17→23:36)
[2020-10-12] MEDS: Vitamin THERAPEUTIC TAB PO SCH (07:18)
[2020-10-13] MEDS: Nicotine GUM 4MG FRUIT FLAVOR PO PRN ×3 (05:54→12:23)
[2020-10-13] MEDS: Vitamin THERAPEUTIC TAB PO SCH (08:15)
[2020-10-13] MEDS: Nicotine PATCH 14 MG/24 HR PATCH TRANSDERM SCH (08:15)
[2020-10-13] MEDS: OLANzapine 5 mg TAB*ODT PO SCH ×2 (08:15→21:37)
[2020-10-14] MEDS: Nicotine GUM 4MG FRUIT FLAVOR PO PRN ×3 (06:23→15:48)
[2020-10-14] MEDS: Nicotine PATCH 14 MG/24 HR PATCH TRANSDERM SCH (07:22)
[2020-10-14] MEDS: OLANzapine 5 mg TAB*ODT PO SCH ×2 (09:42→21:21)
[2020-10-14] MEDS: Vitamin THERAPEUTIC TAB PO SCH (09:42)
[2020-10-15] MEDS: Nicotine GUM 4MG FRUIT FLAVOR PO PRN ×4 (07:23→18:29)
[2020-10-15] MEDS: Nicotine PATCH 14 MG/24 HR PATCH TRANSDERM SCH (08:06)
[2020-10-15] MEDS: Vitamin THERAPEUTIC TAB PO SCH (08:07)
[2020-10-15] MEDS: OLANzapine 5 mg TAB*ODT PO SCH ×2 (08:07→21:06)
[2020-10-15] MEDS: Al Hydrox/Mg Hydrox/Simet LIQ 30 ML UDC PO PRN (19:52)
[2020-10-16] MEDS: Nicotine GUM 4MG FRUIT FLAVOR PO PRN ×4 (06:31→18:50)
[2020-10-16] MEDS: Vitamin THERAPEUTIC TAB PO SCH (08:33)
[2020-10-16] MEDS: OLANzapine 5 mg TAB*ODT PO SCH ×2 (08:33→18:50)
[2020-10-16] MEDS: Nicotine PATCH 14 MG/24 HR PATCH TRANSDERM SCH (08:33)
[2020-10-16] MEDS: Al Hydrox/Mg Hydrox/Simet LIQ 30 ML UDC PO PRN (18:50)
[2020-10-17] MEDS: Nicotine GUM 4MG FRUIT FLAVOR PO PRN ×4 (06:08→20:34)
[2020-10-17] MEDS: OLANzapine 5 mg TAB*ODT PO SCH ×2 (08:43→20:30)
[2020-10-17] MEDS: Nicotine PATCH 14 MG/24 HR PATCH TRANSDERM SCH (08:43)
[2020-10-17] MEDS: Vitamin THERAPEUTIC TAB PO SCH (08:44)
[2020-10-17] MEDS: Al Hydrox/Mg Hydrox/Simet LIQ 30 ML UDC PO PRN (17:46)
[2020-10-18] MEDS: OLANzapine 5 mg TAB*ODT PO SCH ×2 (08:17→20:18)
[2020-10-18] MEDS: Vitamin THERAPEUTIC TAB PO SCH (08:17)
[2020-10-18] MEDS: Nicotine PATCH 14 MG/24 HR PATCH TRANSDERM SCH (08:17)
[2020-10-18] MEDS: Nicotine GUM 4MG FRUIT FLAVOR PO PRN ×4 (08:18→20:31)
[2020-10-19] MEDS: Nicotine GUM 4MG FRUIT FLAVOR PO PRN ×6 (07:20→22:51)
[2020-10-19] MEDS: OLANzapine 5 mg TAB*ODT PO SCH ×2 (08:09→20:48)
[2020-10-19] MEDS: Nicotine PATCH 14 MG/24 HR PATCH TRANSDERM SCH (08:09)
[2020-10-19] MEDS: Vitamin THERAPEUTIC TAB PO SCH (08:09)
[2020-10-20] MEDS: Vitamin THERAPEUTIC TAB PO SCH (08:45)
[2020-10-20] MEDS: Nicotine PATCH 14 MG/24 HR PATCH TRANSDERM SCH (08:45)
[2020-10-20] MEDS: OLANzapine 5 mg TAB*ODT PO SCH ×2 (08:45→20:05)
[2020-10-20] MEDS: Nicotine GUM 4MG FRUIT FLAVOR PO PRN ×4 (09:46→20:30)
[2020-10-21] MEDS: Vitamin THERAPEUTIC TAB PO SCH (08:02)
[2020-10-21] MEDS: OLANzapine 5 mg TAB*ODT PO SCH (08:02)
[2020-10-21] MEDS: Nicotine GUM 4MG FRUIT FLAVOR PO PRN ×5 (08:02→20:14)
[2020-10-21] MEDS: Nicotine PATCH 14 MG/24 HR PATCH TRANSDERM SCH (08:02)
[2020-10-22] MEDS: Vitamin THERAPEUTIC TAB PO SCH (08:13)
[2020-10-22] MEDS: Nicotine PATCH 14 MG/24 HR PATCH TRANSDERM SCH (08:13)
[2020-10-22] MEDS: Nicotine GUM 4MG FRUIT FLAVOR PO PRN ×6 (08:14→20:43)
[2020-10-23] MEDS: Nicotine PATCH 14 MG/24 HR PATCH TRANSDERM SCH (08:25)
[2020-10-23] MEDS: Nicotine GUM 4MG FRUIT FLAVOR PO PRN ×6 (08:27→21:05)
[2020-10-23] MEDS: Vitamin THERAPEUTIC TAB PO SCH (08:29)
[2020-10-24] MEDS: Nicotine PATCH 14 MG/24 HR PATCH TRANSDERM SCH (08:10)
[2020-10-24] MEDS: Nicotine GUM 4MG FRUIT FLAVOR PO PRN ×3 (08:10→19:58)
[2020-10-24] MEDS: Vitamin THERAPEUTIC TAB PO SCH (08:17)
[2020-10-24] MEDS: OLANzapine 5 mg TAB*ODT PO PRN (21:03)
[2020-10-25] MEDS: Nicotine PATCH 14 MG/24 HR PATCH TRANSDERM SCH (07:35)
[2020-10-25] MEDS: Vitamin THERAPEUTIC TAB PO SCH (07:37)
[2020-10-25] MEDS: Nicotine GUM 4MG FRUIT FLAVOR PO PRN (08:06)
[2020-10-25 08:17] VITALS: BP 111/62
== END 2020-10-25 08:40 ==
LOC: ED 10:21 → BSU 09-20 00:30
PROVIDERS: ADMIT Psychiatry & Neurology Psychiatry; ATTEND Psychiatry & Neurology Psychiatry

== ENCOUNTER 2021-03-07 12:31 | Inpatient (IN) ==
[2021-03-07 13:42] LABS: ABS Basophils 0.1 10^3/ul (0-0.2); ABS Lymphocytes 2.2 10^3/ul (1.0-4.8); ABS Monocytes 0.9 10^3/ul (0-0.8); ABS Neutrophils 7.8 10^3/ul (1.5-7.7); Eosinophil % 0.4 %; Hematocrit 39 % (35-47); Hemoglobin 13.5 g/dL (12.0-16.0); Lymphocyte % 20.2 %; Mean Corpuscular HGB Conc 35 g/dL (31-36); Mean Corpuscular Hemoglobin 31 pg (27-31); Mean Corpuscular Volume 89 fL (80-97); Platelet Count 286 10^3/uL (150-450); Red Cell Distribution Width 14 % (10-15); White Blood Count 11.1 10^3/uL (3.5-10.8)
[2021-03-07 13:58] LABS: ALT 6 U/L (7-52); AST 13 U/L (13-39); Albumin 4.6 g/dL (3.2-5.2); Albumin/Globulin Ratio 1.4 (1-3); Alkaline Phosphatase 53 U/L (35-149); Anion Gap 10 mmol/L (2-11); Blood Urea Nitrogen 17 mg/dL (6-24); CO2 Carbon Dioxide 22 mmol/L (22-32); Calcium 9.5 mg/dL (8.6-10.3); Chloride 104 mmol/L (101-111); EGFR African American 81.6 (>60); EGFR Non-African American 67.4 (>60); Globulin 3.2 g/dL (2-4); Glucose 102 mg/dL (70-100); Potassium 3.4 mmol/L (3.5-5.0); Sodium 136 mmol/L (135-145); Total Protein 7.8 g/dL (6.4-8.9)
[2021-03-07] MEDS ORDERED: Al Hydrox/Mg Hydrox/Simet LIQ 30 ML UDC PO PRN (14:01)
[2021-03-07] MEDS ORDERED: Polyethylene Glycol 3350 17 GM PACKET PO PRN (14:02)
[2021-03-07 14:18] LABS: Acetaminophen < 15 mcg/mL; Alcohol, S < 10 mg/dL (<10); Salicylate < 2.50 mg/dL (<30)
[2021-03-07 14:31] LABS: Urine Appearance Cloudy; Urine Bilirubin Negative (Negative); Urine Blood Negative (Negative); Urine Color Yellow; Urine Glucose Negative (Negative); Urine Ketones 1+ (Negative); Urine Nitrite Negative (Negative); Urine Protein 1+(30 mg/dL) (Negative); Urine Specific Gravity 1.018 (1.002-1.030); Urine Urobilinogen Negative (Negative)
[2021-03-07 14:33] LABS: TSH Ultra Thyroid Stim Horm 1.56 mcIU/mL (0.34-5.60)
[2021-03-07 14:37] LABS: Urine Bacteria 1+ (Absent); Urine Red Blood Cell 2+(6-10/hpf) (Absent); Urine Squamous Epithelial Cell Present (Absent); Urine White Blood Cell 1+(6-10/hpf) (Absent)
[2021-03-07 14:57] LABS: Urine Benzodiazepine Screen None Detected (None Detect); Urine Cannabinoids Screen Presumptive Positive (None Detect); Urine Opiates Screen None Detected (None Detect)
[2021-03-08] MEDS: Nicotine GUM 4MG FRUIT FLAVOR PO PRN ×2 (09:22→22:11)
[2021-03-08] MEDS: Nicotine PATCH 14 MG/24 HR PATCH TRANSDERM SCH (09:22)
[2021-03-08] MEDS: Multivitamins/Minerals TAB PO SCH (09:22)
[2021-03-08] MEDS: OLANzapine 5 mg TAB*ODT PO PRN (09:30)
[2021-03-08] MEDS ORDERED: chlorproMAZINE 25 MG/ML 2 ML (50 MG) ONE (15:08)
[2021-03-08] MEDS ORDERED: LORazepam 2 mg VIAL 1 ml ONE (15:10)
[2021-03-08] MEDS ORDERED: OLANzapine 5 mg TAB*ODT PO SCH (21:00)
[2021-03-09] MEDS: Multivitamins/Minerals TAB PO SCH (10:22)
[2021-03-09] MEDS: Nicotine GUM 4MG FRUIT FLAVOR PO PRN ×2 (10:22→16:43)
[2021-03-09] MEDS: Nicotine PATCH 14 MG/24 HR PATCH TRANSDERM SCH (10:22)
[2021-03-09] MEDS: OLANzapine 5 mg TAB*ODT PO SCH ×2 (10:53→22:34)
[2021-03-09] MEDS: OLANzapine 5 mg TAB*ODT PO PRN (11:43)
[2021-03-10 09:34] LABS: Cholesterol 133 mg/dL; HDL Cholesterol 45.2 mg/dL; LDL Cholesterol 74 mg/dL; Triglycerides 70 mg/dL
[2021-03-10] MEDS: Nicotine PATCH 14 MG/24 HR PATCH TRANSDERM SCH (10:12)
[2021-03-10] MEDS: OLANzapine 5 mg TAB*ODT PO SCH ×2 (10:12→20:14)
[2021-03-10] MEDS: Nicotine GUM 4MG FRUIT FLAVOR PO PRN ×3 (10:12→18:28)
[2021-03-10] MEDS: Multivitamins/Minerals TAB PO SCH (10:15)
[2021-03-10 15:08] LABS: HCG Pregnancy < 0.60 mIU/mL
[2021-03-10] MEDS: OLANzapine 5 mg TAB*ODT PO PRN (18:26)
[2021-03-11] MEDS: OLANzapine 5 mg TAB*ODT PO SCH ×2 (08:13→21:49)
[2021-03-11] MEDS: Nicotine PATCH 14 MG/24 HR PATCH TRANSDERM SCH (08:13)
[2021-03-11] MEDS: Nicotine GUM 4MG FRUIT FLAVOR PO PRN ×2 (08:13→12:01)
[2021-03-11] MEDS: Multivitamins/Minerals TAB PO SCH (08:17)
[2021-03-12] MEDS: OLANzapine 5 mg TAB*ODT PO SCH ×2 (09:27→22:09)
[2021-03-12] MEDS: Nicotine PATCH 14 MG/24 HR PATCH TRANSDERM SCH (09:27)
[2021-03-12] MEDS: Multivitamins/Minerals TAB PO SCH (09:27)
[2021-03-12] MEDS: Nicotine GUM 4MG FRUIT FLAVOR PO PRN (12:38)
[2021-03-12] MEDS: OLANzapine 5 mg TAB*ODT PO PRN (12:58)
[2021-03-13] MEDS: Nicotine GUM 4MG FRUIT FLAVOR PO PRN ×6 (06:14→20:44)
[2021-03-13] MEDS: Nicotine PATCH 14 MG/24 HR PATCH TRANSDERM SCH (08:14)
[2021-03-13] MEDS: OLANzapine 5 mg TAB*ODT PO SCH ×2 (08:15→20:43)
[2021-03-13] MEDS: Multivitamins/Minerals TAB PO SCH (09:17)
[2021-03-13] MEDS ORDERED: COVID-19 VACCINE, AD26(JANSSEN)/PF 0.5 ML IM ONE (15:00)
[2021-03-14] MEDS: OLANzapine 5 mg TAB*ODT PO SCH ×2 (10:44→21:14)
[2021-03-14] MEDS: Nicotine PATCH 14 MG/24 HR PATCH TRANSDERM SCH (10:44)
[2021-03-14] MEDS: Multivitamins/Minerals TAB PO SCH (10:45)
[2021-03-14] MEDS: Nicotine GUM 4MG FRUIT FLAVOR PO PRN ×2 (13:04→16:26)
[2021-03-15] MEDS: OLANzapine 5 mg TAB*ODT PO SCH (08:34)
[2021-03-15] MEDS: Nicotine GUM 4MG FRUIT FLAVOR PO PRN ×2 (08:35→19:04)
[2021-03-15] MEDS: Nicotine PATCH 14 MG/24 HR PATCH TRANSDERM SCH (08:35)
[2021-03-15] MEDS: Multivitamins/Minerals TAB PO SCH (08:36)
[2021-03-16] MEDS: Nicotine GUM 4MG FRUIT FLAVOR PO PRN ×3 (06:48→20:36)
[2021-03-16] MEDS: Multivitamins/Minerals TAB PO SCH (07:31)
[2021-03-16] MEDS: Nicotine PATCH 14 MG/24 HR PATCH TRANSDERM SCH (07:33)
[2021-03-17] MEDS: Nicotine GUM 4MG FRUIT FLAVOR PO PRN ×5 (05:55→20:21)
[2021-03-17] MEDS: Nicotine PATCH 14 MG/24 HR PATCH TRANSDERM SCH (08:05)
[2021-03-17] MEDS: Multivitamins/Minerals TAB PO SCH (08:19)
[2021-03-18] MEDS: Nicotine PATCH 14 MG/24 HR PATCH TRANSDERM SCH (11:13)
[2021-03-18] MEDS: Nicotine GUM 4MG FRUIT FLAVOR PO PRN ×3 (11:14→19:19)
[2021-03-18] MEDS: Multivitamins/Minerals TAB PO SCH (11:44)
[2021-03-18 21:59] LABS: Urine Appearance Clear; Urine Bilirubin Negative (Negative); Urine Blood 1+ (Negative); Urine Color Colorless; Urine Glucose Negative (Negative); Urine Ketones Negative (Negative); Urine Nitrite Negative (Negative); Urine Protein Negative (Negative); Urine Specific Gravity 1.002 (1.002-1.030); Urine Urobilinogen Negative (Negative)
[2021-03-18 22:02] LABS: Urine Bacteria Absent (Absent); Urine Red Blood Cell Absent (Absent); Urine White Blood Cell Absent (Absent)
[2021-03-19] MEDS: Multivitamins/Minerals TAB PO SCH (08:17)
[2021-03-19] MEDS: Nicotine PATCH 14 MG/24 HR PATCH TRANSDERM SCH (11:26)
[2021-03-19] MEDS: Nicotine GUM 4MG FRUIT FLAVOR PO PRN ×3 (12:57→20:34)
[2021-03-20] MEDS: Multivitamins/Minerals TAB PO SCH (07:11)
[2021-03-20] MEDS: Nicotine PATCH 14 MG/24 HR PATCH TRANSDERM SCH (07:45)
[2021-03-20] MEDS: Nicotine GUM 4MG FRUIT FLAVOR PO PRN ×4 (10:45→19:23)
[2021-03-21] MEDS: Nicotine PATCH 14 MG/24 HR PATCH TRANSDERM SCH (08:15)
[2021-03-21] MEDS: Multivitamins/Minerals TAB PO SCH (08:15)
[2021-03-21] MEDS: Nicotine GUM 4MG FRUIT FLAVOR PO PRN ×5 (09:05→21:05)
[2021-03-22] MEDS: Nicotine PATCH 14 MG/24 HR PATCH TRANSDERM SCH ×2 (08:43→11:03)
[2021-03-22] MEDS: Multivitamins/Minerals TAB PO SCH ×2 (08:43→11:04)
[2021-03-22] MEDS: Nicotine GUM 4MG FRUIT FLAVOR PO PRN ×3 (12:07→18:31)
[2021-03-23] MEDS: Nicotine PATCH 14 MG/24 HR PATCH TRANSDERM SCH (09:03)
[2021-03-23] MEDS: Nicotine GUM 4MG FRUIT FLAVOR PO PRN ×5 (09:04→19:38)
[2021-03-23] MEDS: Multivitamins/Minerals TAB PO SCH (09:52)
[2021-03-24] MEDS: Nicotine PATCH 14 MG/24 HR PATCH TRANSDERM SCH (08:14)
[2021-03-24] MEDS: Multivitamins/Minerals TAB PO SCH (08:15)
[2021-03-24] MEDS: Nicotine GUM 4MG FRUIT FLAVOR PO PRN ×3 (08:18→14:57)
[2021-03-24 13:05] VITALS: BP 113/75
== END 2021-03-24 16:00 | disposition home or self-care (01) | DRG 885 ==
LOC: ED 12:31 → BSU 14:01
PROVIDERS: ADMIT Psychiatry & Neurology Psychiatry; ATTEND Psychiatry & Neurology Psychiatry

== ENCOUNTER 2021-03-28 07:26 | Inpatient (IN) ==
[2021-03-28 08:36] LABS: Urine Appearance Cloudy; Urine Bilirubin Negative (Negative); Urine Blood Negative (Negative); Urine Color Yellow; Urine Glucose Negative (Negative); Urine Ketones Negative (Negative); Urine Nitrite Negative (Negative); Urine Protein Negative (Negative); Urine Specific Gravity 1.021 (1.002-1.030); Urine Urobilinogen Negative (Negative)
[2021-03-28 08:54] LABS: Urine Benzodiazepine Screen None Detected (None Detect); Urine Cannabinoids Screen Presumptive Positive (None Detect); Urine Opiates Screen None Detected (None Detect)
[2021-03-28] MEDS ORDERED: Haloperidol 5 mg/ml SDV IV/IM 5 MG/ML AMP IM ONE ×2 (09:21→16:42)
[2021-03-28] MEDS ORDERED: Lorazepam PYXIS KEY PRN ×2 (09:21→16:42)
[2021-03-28] MEDS ORDERED: diPHENhydraMINE IV 50 MG/ML 1 ml VIAL (BENADRYL) IV ONE (09:21)
[2021-03-28] MEDS ORDERED: LORazepam 2 mg VIAL 1 ml IM ONE ×2 (09:21→16:42)
[2021-03-28] MEDS ORDERED: LORazepam 2 mg VIAL 1 ml ONE ×2 (09:22→09:27)
[2021-03-28] MEDS ORDERED: Haloperidol 5 mg/ml SDV IV/IM 5 MG/ML AMP ONE (09:27)
[2021-03-28] MEDS ORDERED: diPHENhydraMINE IV 50 MG/ML 1 ml VIAL (BENADRYL) ONE (09:27)
[2021-03-28 09:35] LABS: ALT 12 U/L (7-52); AST 17 U/L (13-39); Albumin 4.1 g/dL (3.2-5.2); Albumin/Globulin Ratio 1.4 (1-3); Alkaline Phosphatase 49 U/L (35-149); Anion Gap 7 mmol/L (2-11); Blood Urea Nitrogen 14 mg/dL (6-24); CO2 Carbon Dioxide 26 mmol/L (22-32); Chloride 105 mmol/L (101-111); EGFR Non-African American 96.7 (>60); Globulin 2.9 g/dL (2-4); Glucose 88 mg/dL (70-100); Potassium 3.7 mmol/L (3.5-5.0); Sodium 138 mmol/L (135-145)
[2021-03-28 10:10] LABS: ABS Basophils 0.1 10^3/ul (0-0.2); ABS Eosinophils 0.2 10^3/ul (0-0.6); ABS Lymphocytes 2.4 10^3/ul (1.0-4.8); ABS Monocytes 1.4 10^3/ul (0-0.8); ABS Neutrophils 7.8 10^3/ul (1.5-7.7); Eosinophil % 2.1 %; Hematocrit 34 % (35-47); Hemoglobin 11.6 g/dL (12.0-16.0); Lymphocyte % 20.3 %; Mean Corpuscular HGB Conc 34 g/dL (31-36); Mean Corpuscular Hemoglobin 31 pg (27-31); Mean Corpuscular Volume 91 fL (80-97); Mean Platelet Volume 8.5 fL (7.4-10.4); Platelet Count 217 10^3/uL (150-450); Red Blood Count 3.71 10^6 /uL (3.70-4.87); Red Cell Distribution Width 15 % (10-15)
[2021-03-28 10:25] LABS: Acetaminophen < 15 mcg/mL; Alcohol, S < 10 mg/dL (<10); Salicylate < 2.50 mg/dL (<30)
[2021-03-28 10:39] LABS: TSH Ultra Thyroid Stim Horm 4.79 mcIU/mL (0.34-5.60)
[2021-03-28] MEDS ORDERED: Al Hydrox/Mg Hydrox/Simet LIQ 30 ML UDC PO PRN (22:09)
[2021-03-29] MEDS: Vitamin THERAPEUTIC TAB PO SCH (08:29)
[2021-03-29] MEDS: Nicotine GUM 4MG FRUIT FLAVOR PO PRN ×3 (14:35→21:01)
[2021-03-29] MEDS: Nicotine PATCH 21 MG/24 HR PATCH TRANSDERM SCH (14:35)
[2021-03-29] MEDS: Benzocaine/Menthol LOZ PO PRN (21:49)
[2021-03-30] MEDS: Nicotine PATCH 21 MG/24 HR PATCH TRANSDERM SCH (07:41)
[2021-03-30] MEDS: Vitamin THERAPEUTIC TAB PO SCH (07:42)
[2021-03-30] MEDS: Nicotine GUM 4MG FRUIT FLAVOR PO PRN (08:18)
[2021-03-30 09:02] LABS: HDL Cholesterol 55.2 mg/dL
[2021-03-30] MEDS: Benzocaine/Menthol LOZ PO PRN (13:55)
[2021-03-31] MEDS: Vitamin THERAPEUTIC TAB PO SCH (08:17)
[2021-03-31] MEDS: Nicotine PATCH 21 MG/24 HR PATCH TRANSDERM SCH (08:17)
[2021-03-31] MEDS: Nicotine GUM 4MG FRUIT FLAVOR PO PRN ×3 (08:19→17:23)
[2021-04-01] MEDS: Nicotine GUM 4MG FRUIT FLAVOR PO PRN ×5 (00:42→21:05)
[2021-04-01] MEDS: Nicotine PATCH 21 MG/24 HR PATCH TRANSDERM SCH (08:17)
[2021-04-01] MEDS: Vitamin THERAPEUTIC TAB PO SCH (08:17)
[2021-04-02] MEDS: Vitamin THERAPEUTIC TAB PO SCH (08:33)
[2021-04-02] MEDS: Nicotine PATCH 21 MG/24 HR PATCH TRANSDERM SCH (08:34)
[2021-04-02] MEDS: Nicotine GUM 4MG FRUIT FLAVOR PO PRN ×2 (13:54→19:05)
[2021-04-02] MEDS: Benzocaine/Menthol LOZ PO PRN (19:45)
[2021-04-03] MEDS: Vitamin THERAPEUTIC TAB PO SCH (10:33)
[2021-04-03] MEDS: Nicotine GUM 4MG FRUIT FLAVOR PO PRN ×3 (10:33→19:56)
[2021-04-03] MEDS: Nicotine PATCH 21 MG/24 HR PATCH TRANSDERM SCH (10:33)
[2021-04-03] MEDS: Benzocaine/Menthol LOZ PO PRN (19:56)
[2021-04-04] MEDS: Nicotine PATCH 21 MG/24 HR PATCH TRANSDERM SCH (08:32)
[2021-04-04] MEDS: Vitamin THERAPEUTIC TAB PO SCH (08:32)
[2021-04-04] MEDS: Nicotine GUM 4MG FRUIT FLAVOR PO PRN ×4 (10:55→20:29)
[2021-04-04] MEDS: Benzocaine/Menthol LOZ PO PRN (16:30)
[2021-04-04 22:33] VITALS: BP 117/72
[2021-04-05] MEDS: Nicotine PATCH 21 MG/24 HR PATCH TRANSDERM SCH (09:27)
[2021-04-05] MEDS: Vitamin THERAPEUTIC TAB PO SCH (09:27)
[2021-04-05] MEDS: Nicotine GUM 4MG FRUIT FLAVOR PO PRN ×2 (11:46→14:18)
[2021-04-05] MEDS: Benzocaine/Menthol LOZ PO PRN (12:46)
[2021-04-05 14:58] LABS: ABS Basophils 0.1 10^3/ul (0-0.2); ABS Eosinophils 0.5 10^3/ul (0-0.6); ABS Lymphocytes 2.8 10^3/ul (1.0-4.8); ABS Monocytes 0.8 10^3/ul (0-0.8); ABS Neutrophils 4.3 10^3/ul (1.5-7.7); Eosinophil % 6.1 %; Hematocrit 36 % (35-47); Hemoglobin 12.6 g/dL (12.0-16.0); Lymphocyte % 32.5 %; Mean Corpuscular HGB Conc 35 g/dL (31-36); Mean Corpuscular Hemoglobin 32 pg (27-31); Mean Corpuscular Volume 91 fL (80-97); Mean Platelet Volume 8.6 fL (7.4-10.4); Nucleated Red Blood Cells % 0.1; Platelet Count 256 10^3/uL (150-450); Red Blood Count 3.94 10^6 /uL (3.70-4.87); Red Cell Distribution Width 14 % (10-15); White Blood Count 8.5 10^3/uL (3.5-10.8)
[2021-04-05 15:16] LABS: Free T3 3.8 pg/mL (2.5-3.9)
[2021-04-05 15:19] LABS: Free T4 0.7 ng/dL (0.61-1.12)
[2021-04-05 15:29] LABS: Albumin/Globulin Ratio 1.5 (1-3); Calcium 9.2 mg/dL (8.6-10.3); EGFR African American 115.1 (>60); EGFR Non-African American 95.1 (>60); Globulin 2.7 g/dL (2-4); Potassium 4.3 mmol/L (3.5-5.0); Total Bilirubin 0.2 mg/dL (0.2-1.0); Total Protein 6.7 g/dL (6.4-8.9)
== END 2021-04-05 15:53 | disposition home or self-care (01) | DRG 885 ==
LOC: ED 07:26 → BSU 22:50
PROVIDERS: ADMIT Psychiatry & Neurology Psychiatry; ATTEND Psychiatry & Neurology Psychiatry

== ENCOUNTER 2021-08-25 08:14 | Inpatient (IN) ==
[2021-08-25] MEDS ORDERED: Lorazepam PYXIS KEY PRN (08:34)
[2021-08-25] MEDS ORDERED: diPHENhydraMINE IV 50 MG/ML 1 ml VIAL (BENADRYL) IM ONE (08:34)
[2021-08-25] MEDS ORDERED: Haloperidol 5 mg/ml SDV IV/IM 5 MG/ML AMP IM ONE (08:34)
[2021-08-25] MEDS ORDERED: LORazepam 2 mg VIAL 1 ml IM ONE (08:34)
[2021-08-25 09:50] LABS: ABS Basophils 0.1 10^3/ul (0-0.2); ABS Eosinophils 0.3 10^3/ul (0-0.6); ABS Lymphocytes 1.8 10^3/ul (1.0-4.8); ABS Monocytes 0.7 10^3/ul (0-0.8); Eosinophil % 3.5 %; Hematocrit 36 % (35-47); Hemoglobin 12.3 g/dL (12.0-16.0); Lymphocyte % 22.4 %; Mean Corpuscular HGB Conc 34 g/dL (31-36); Mean Corpuscular Hemoglobin 30 pg (27-31); Mean Corpuscular Volume 89 fL (80-97); Mean Platelet Volume 7.9 fL (7.4-10.4); Platelet Count 218 10^3/uL (150-450); Red Blood Count 4.07 10^6 /uL (3.70-4.87); Red Cell Distribution Width 14 % (10-15); White Blood Count 7.9 10^3/uL (3.5-10.8)
[2021-08-25 10:08] LABS: ALT 55 U/L (7-52); AST 38 U/L (13-39); Albumin/Globulin Ratio 1.5 (1-3); Alkaline Phosphatase 51 U/L (35-149); Anion Gap 7 mmol/L (2-11); Blood Urea Nitrogen 10 mg/dL (6-24); CO2 Carbon Dioxide 22 mmol/L (22-32); Calcium 8.8 mg/dL (8.6-10.3); Chloride 108 mmol/L (101-111); Globulin 2.7 g/dL (2-4); Glucose 103 mg/dL (70-100); Potassium 3.6 mmol/L (3.5-5.0); Sodium 137 mmol/L (135-145); Total Protein 6.7 g/dL (6.4-8.9); eGFR CKD-EPI 120.1 (>60)
[2021-08-25 10:15] LABS: HCG Pregnancy < 0.60 mIU/mL
[2021-08-25 10:24] LABS: Acetaminophen < 15 mcg/mL; Alcohol, S < 13 mg/dL (<13); Salicylate < 2.50 mg/dL (<30)
[2021-08-25 10:39] LABS: TSH Ultra Thyroid Stim Horm 1.36 mcIU/mL (0.34-5.60)
[2021-08-26] MEDS ORDERED: Al Hydrox/Mg Hydrox/Simet LIQ 30 ML UDC PO PRN (08:15)
[2021-08-26] MEDS: Nicotine GUM 4MG FRUIT FLAVOR PO PRN ×3 (10:44→16:18)
[2021-08-26] MEDS: Nicotine PATCH 21 MG/24 HR PATCH TRANSDERM SCH (10:46)
[2021-08-26] MEDS: Vitamin THERAPEUTIC TAB PO SCH (10:46)
[2021-08-26 12:09] LABS: Lithium < 0.10 mmol/L (0.6-1.2)
[2021-08-27] MEDS: Vitamin THERAPEUTIC TAB PO SCH (08:05)
[2021-08-27] MEDS: Nicotine GUM 4MG FRUIT FLAVOR PO PRN ×4 (08:05→15:29)
[2021-08-27] MEDS: Nicotine PATCH 21 MG/24 HR PATCH TRANSDERM SCH (08:06)
[2021-08-28] MEDS: Vitamin THERAPEUTIC TAB PO SCH (09:38)
[2021-08-28] MEDS: Nicotine GUM 4MG FRUIT FLAVOR PO PRN ×2 (09:38→15:23)
[2021-08-28] MEDS: Nicotine PATCH 21 MG/24 HR PATCH TRANSDERM SCH (09:39)
[2021-08-29] MEDS: Nicotine GUM 4MG FRUIT FLAVOR PO PRN ×2 (06:13→12:37)
[2021-08-29] MEDS: Nicotine PATCH 21 MG/24 HR PATCH TRANSDERM SCH ×2 (06:55→09:16)
[2021-08-29 07:49] VITALS: BP 112/85
[2021-08-29 08:29] LABS: HDL Cholesterol 49.6 mg/dL
[2021-08-29] MEDS: Vitamin THERAPEUTIC TAB PO SCH (09:14)
[2021-08-29] MEDS ORDERED: Paliperidone SUSTENNA 234 MG/1.5 ML IM ONE (10:05)
== END 2021-08-29 15:50 | disposition home or self-care (01) | DRG 885 ==
LOC: ED 08:14 → BSU 08-26 06:00
PROVIDERS: ADMIT Psychiatry & Neurology Psychiatry; ATTEND Psychiatry & Neurology Psychiatry

== ENCOUNTER 2022-03-30 14:58 | Inpatient (IN) ==
[2022-03-30] MEDS ORDERED: OLANZapine 10 mg TAB*ODT PO ONE (15:17)
[2022-03-30 16:07] LABS: ABS Basophils 0.1 10^3/ul (0-0.2); ABS Eosinophils 0.1 10^3/ul (0-0.6); ABS Lymphocytes 1.4 10^3/ul (1.0-4.8); ABS Monocytes 0.7 10^3/ul (0-0.8); ABS Neutrophils 3.4 10^3/ul (1.5-7.7); Eosinophil % 1.3 %; Hematocrit 37 % (35-47); Hemoglobin 12.5 g/dL (12.0-16.0); Lymphocyte % 25.4 %; Mean Corpuscular HGB Conc 34 g/dL (31-36); Mean Corpuscular Hemoglobin 31 pg (27-31); Mean Corpuscular Volume 90 fL (80-97); Mean Platelet Volume 7.6 fL (7.4-10.4); Platelet Count 274 10^3/uL (150-450); Red Blood Count 4.08 10^6 /uL (3.70-4.87); Red Cell Distribution Width 13 % (10-15); White Blood Count 5.6 10^3/uL (3.5-10.8)
[2022-03-30 16:54] LABS: ALT 33 U/L (7-52); AST 24 U/L (13-39); Acetaminophen < 15 mcg/mL; Albumin 4.4 g/dL (3.2-5.2); Albumin/Globulin Ratio 1.6 (1-3); Alcohol, S < 13 mg/dL (<13); Alkaline Phosphatase 57 U/L (35-149); Anion Gap 8 mmol/L (2-11); Blood Urea Nitrogen 7 mg/dL (6-24); CO2 Carbon Dioxide 27 mmol/L (22-32); Calcium 9.3 mg/dL (8.6-10.3); Chloride 103 mmol/L (101-111); Globulin 2.8 g/dL (2-4); Glucose 96 mg/dL (70-100); Salicylate < 2.50 mg/dL (<30); Sodium 138 mmol/L (135-145); Total Protein 7.2 g/dL (6.4-8.9)
[2022-03-30 16:57] LABS: TSH Ultra Thyroid Stim Horm 1.73 mcIU/mL (0.34-5.60)
[2022-03-31] MEDS ORDERED: Al Hydrox/Mg Hydrox/Simet LIQ 30 ML UDC PO PRN (00:43)
[2022-03-31] MEDS ORDERED: DIPHENHYDRAMINE 50 MG PO (01:00)
[2022-03-31] MEDS ORDERED: [UNRECOGNIZED DRUG - OTHER] PO (01:00)
[2022-03-31] MEDS ORDERED: OLANZapine 10 mg TAB*ODT PO PRN (10:25)
[2022-03-31] MEDS: Vitamin THERAPEUTIC TAB PO SCH (12:49)
[2022-03-31] MEDS: Nicotine PATCH 21 MG/24 HR PATCH TRANSDERM SCH (12:50)
[2022-03-31] MEDS: Nicotine Lozenge mini 4 MG LOZNG.MINI MT PRN (17:23)
[2022-04-01] MEDS: Nicotine PATCH 21 MG/24 HR PATCH TRANSDERM SCH (08:09)
[2022-04-01] MEDS: Nicotine Lozenge mini 4 MG LOZNG.MINI MT PRN ×2 (08:09→10:35)
[2022-04-01] MEDS: OLANZapine 10 mg TAB*ODT PO PRN (08:09)
[2022-04-01] MEDS: Vitamin THERAPEUTIC TAB PO SCH (08:11)
[2022-04-02 08:17] LABS: HDL Cholesterol 46.3 mg/dL
[2022-04-02] MEDS: Nicotine PATCH 21 MG/24 HR PATCH TRANSDERM SCH (10:31)
[2022-04-02] MEDS: Nicotine Lozenge mini 4 MG LOZNG.MINI MT PRN ×4 (10:32→18:03)
[2022-04-02] MEDS: Vitamin THERAPEUTIC TAB PO SCH (10:32)
[2022-04-02] MEDS: OLANZapine 10 mg TAB*ODT PO PRN (18:07)
[2022-04-03] MEDS: Vitamin THERAPEUTIC TAB PO SCH (10:21)
[2022-04-03] MEDS: Nicotine PATCH 21 MG/24 HR PATCH TRANSDERM SCH (10:21)
[2022-04-03] MEDS: Nicotine Lozenge mini 4 MG LOZNG.MINI MT PRN ×3 (10:21→19:05)
[2022-04-03] MEDS: Nicotine GUM 4MG FRUIT FLAVOR PO PRN (17:41)
[2022-04-03] MEDS: OLANZapine 10 mg TAB*ODT PO PRN (19:08)
[2022-04-03 20:47] VITALS: BP 100/65
[2022-04-04] MEDS: Nicotine Lozenge mini 4 MG LOZNG.MINI MT PRN ×3 (09:51→19:09)
[2022-04-04] MEDS: Vitamin THERAPEUTIC TAB PO SCH (09:51)
[2022-04-04] MEDS: Nicotine PATCH 21 MG/24 HR PATCH TRANSDERM SCH (09:51)
[2022-04-04] MEDS: Nicotine GUM 4MG FRUIT FLAVOR PO PRN ×2 (11:06→17:45)
[2022-04-04] MEDS: OLANZapine 10 mg TAB*ODT PO PRN ×2 (11:07→17:43)
[2022-04-05] MEDS: Nicotine Lozenge mini 4 MG LOZNG.MINI MT PRN ×2 (10:27→12:32)
[2022-04-05] MEDS: Nicotine PATCH 21 MG/24 HR PATCH TRANSDERM SCH (10:29)
[2022-04-05] MEDS: Vitamin THERAPEUTIC TAB PO SCH (10:29)
[2022-04-05] MEDS: Nicotine GUM 4MG FRUIT FLAVOR PO PRN (10:59)
== END 2022-04-05 13:30 | disposition home or self-care (01) | DRG 885 ==
LOC: ED 14:58 → BSU 03-31 01:35
PROVIDERS: ADMIT Psychiatry & Neurology Psychiatry; ATTEND Psychiatry & Neurology Psychiatry

== ENCOUNTER 2022-10-07 11:16 | Inpatient (IN) ==
[2022-10-07 11:48] LABS: ABS Basophils 0.1 10^3/ul (0-0.2); ABS Eosinophils 0.7 10^3/ul (0-0.6); ABS Lymphocytes 2.3 10^3/ul (1.0-4.8); ABS Monocytes 0.6 10^3/ul (0-0.8); ABS Neutrophils 4.1 10^3/ul (1.5-7.7); Eosinophil % 8.8 %; Hematocrit 34 % (35-47); Hemoglobin 11.2 g/dL (12.0-16.0); Lymphocyte % 29.8 %; Mean Corpuscular HGB Conc 33 g/dL (31-36); Mean Corpuscular Hemoglobin 31 pg (27-31); Mean Corpuscular Volume 91 fL (80-97); Mean Platelet Volume 7.4 fL (7.4-10.4); Platelet Count 246 10^3/uL (150-450); Red Blood Count 3.69 10^6 /uL (3.70-4.87); Red Cell Distribution Width 13 % (10-15); White Blood Count 7.8 10^3/uL (3.5-10.8)
[2022-10-07 12:10] LABS: ALT 12 U/L (7-52); AST 14 U/L (13-39); Acetaminophen < 15 mcg/mL; Albumin 3.8 g/dL (3.2-5.2); Albumin/Globulin Ratio 1.6 (1-3); Alcohol, S < 13 mg/dL (<13); Alkaline Phosphatase 48 U/L (35-149); Anion Gap 8 mmol/L (2-11); Blood Urea Nitrogen 11 mg/dL (6-24); CO2 Carbon Dioxide 24 mmol/L (22-32); Calcium 8.4 mg/dL (8.6-10.3); Chloride 108 mmol/L (101-111); Globulin 2.4 g/dL (2-4); Glucose 93 mg/dL (70-100); Salicylate < 2.50 mg/dL (<30); Sodium 140 mmol/L (135-145); Total Protein 6.2 g/dL (6.4-8.9); eGFR CKD-EPI 113.9 (>60)
[2022-10-07 12:16] LABS: HCG Pregnancy < 0.60 mIU/mL
[2022-10-07 12:25] LABS: TSH Ultra Thyroid Stim Horm 0.85 mcIU/mL (0.34-5.60)
[2022-10-07] MEDS ORDERED: LORazepam 2 mg VIAL 1 ml IM ONE (13:41)
[2022-10-07] MEDS ORDERED: Haloperidol 5 mg/ml SDV IV/IM 5 MG/ML AMP IM ONE (13:41)
[2022-10-07] MEDS ORDERED: Lorazepam PYXIS KEY PRN (13:41)
[2022-10-07] MEDS ORDERED: LORazepam 2 mg VIAL 1 ml ONE (13:43)
[2022-10-08 07:30] LABS: Urine Benzodiazepine Screen None Detected (None Detect); Urine Cannabinoids Screen Presumptive Positive (None Detect); Urine Opiates Screen None Detected (None Detect)
[2022-10-08 07:45] LABS: Urine Appearance Cloudy; Urine Bilirubin Negative (Negative); Urine Blood Negative (Negative); Urine Color Yellow; Urine Glucose Negative (Negative); Urine Ketones Negative (Negative); Urine Nitrite Negative (Negative); Urine Protein Negative (Negative); Urine Specific Gravity 1.019 (1.002-1.030); Urine Urobilinogen Negative (Negative)
[2022-10-08] MEDS ORDERED: Al Hydrox/Mg Hydrox/Simet LIQ 30 ML UDC PO PRN (09:14)
[2022-10-09] MEDS: Nicotine PATCH 21 MG/24 HR PATCH TRANSDERM SCH (08:02)
[2022-10-09] MEDS: Vitamin THERAPEUTIC TAB PO SCH (08:03)
[2022-10-09] MEDS: Nicotine GUM 2MG FRUIT FLAVOR PO PRN ×4 (08:03→17:21)
[2022-10-09] MEDS ORDERED: Paliperidone SUSTENNA 234 MG/1.5 ML IM ONE (12:04)
[2022-10-10] MEDS: Nicotine GUM 2MG FRUIT FLAVOR PO PRN ×2 (08:56→15:33)
[2022-10-10] MEDS: Nicotine PATCH 21 MG/24 HR PATCH TRANSDERM SCH (08:56)
[2022-10-10] MEDS: Vitamin THERAPEUTIC TAB PO SCH (08:57)
[2022-10-11] MEDS: Nicotine GUM 2MG FRUIT FLAVOR PO PRN ×3 (09:43→18:05)
[2022-10-11] MEDS: Nicotine PATCH 21 MG/24 HR PATCH TRANSDERM SCH (09:43)
[2022-10-11] MEDS: Vitamin THERAPEUTIC TAB PO SCH (09:45)
[2022-10-12] MEDS: Nicotine PATCH 21 MG/24 HR PATCH TRANSDERM SCH (07:49)
[2022-10-12] MEDS: Nicotine GUM 2MG FRUIT FLAVOR PO PRN ×3 (07:49→18:33)
[2022-10-12 08:14] LABS: HDL Cholesterol 54.9 mg/dL
[2022-10-12] MEDS: Vitamin THERAPEUTIC TAB PO SCH (08:51)
[2022-10-12 21:41] VITALS: BP 105/76
[2022-10-13] MEDS ORDERED: Paliperidone SUSTENNA 156 MG/1 ML IM ONE (09:00)
[2022-10-13] MEDS: Nicotine GUM 2MG FRUIT FLAVOR PO PRN (09:16)
[2022-10-13] MEDS: Nicotine PATCH 21 MG/24 HR PATCH TRANSDERM SCH (09:16)
[2022-10-13] MEDS: Vitamin THERAPEUTIC TAB PO SCH (09:18)
== END 2022-10-13 12:00 | disposition home or self-care (01) | DRG 885 ==
LOC: ED 11:16 → EDHOLD 10-08 09:15 → BSU 10-08 09:57
PROVIDERS: ADMIT Psychiatry & Neurology Addiction Psychiatry; ATTEND Psychiatry & Neurology Addiction Psychiatry

== ENCOUNTER 2023-04-23 18:21 | Inpatient (IN) ==
[2023-04-24] MEDS ORDERED: Al Hydrox/Mg Hydrox/Simet LIQ 30 ML UDC PO PRN (13:39)
[2023-04-24] MEDS: Nicotine GUM 4MG FRUIT FLAVOR PO PRN (23:14)
[2023-04-25] MEDS: Nicotine PATCH 21 MG/24 HR PATCH TRANSDERM SCH (12:04)
[2023-04-25] MEDS: Nicotine GUM 4MG FRUIT FLAVOR PO PRN (19:25)
[2023-04-26 08:20] LABS: HDL Cholesterol 54.3 mg/dL
[2023-04-26] MEDS: Nicotine GUM 4MG FRUIT FLAVOR PO PRN ×3 (10:45→20:22)
[2023-04-26] MEDS: Nicotine PATCH 21 MG/24 HR PATCH TRANSDERM SCH (10:45)
[2023-04-27] MEDS: Nicotine PATCH 21 MG/24 HR PATCH TRANSDERM SCH (08:30)
[2023-04-27] MEDS: Nicotine GUM 4MG FRUIT FLAVOR PO PRN ×2 (12:30→18:39)
[2023-04-28] MEDS: Nicotine GUM 4MG FRUIT FLAVOR PO PRN ×6 (08:44→19:36)
[2023-04-28] MEDS: Nicotine PATCH 21 MG/24 HR PATCH TRANSDERM SCH (08:44)
[2023-04-29] MEDS: Nicotine PATCH 21 MG/24 HR PATCH TRANSDERM SCH (09:15)
[2023-04-29] MEDS: Nicotine GUM 4MG FRUIT FLAVOR PO PRN ×4 (09:16→17:15)
[2023-04-30] MEDS: Nicotine GUM 4MG FRUIT FLAVOR PO PRN ×4 (06:27→17:23)
[2023-04-30] MEDS: Nicotine PATCH 21 MG/24 HR PATCH TRANSDERM SCH (07:52)
[2023-05-01] MEDS: Nicotine GUM 4MG FRUIT FLAVOR PO PRN ×4 (07:04→18:50)
[2023-05-01] MEDS: Multivitamins/Minerals TAB PO SCH (08:22)
[2023-05-01] MEDS: Nicotine PATCH 21 MG/24 HR PATCH TRANSDERM SCH (08:22)
[2023-05-02] MEDS: Nicotine GUM 4MG FRUIT FLAVOR PO PRN ×3 (07:29→12:16)
[2023-05-02] MEDS: Multivitamins/Minerals TAB PO SCH (07:29)
[2023-05-02] MEDS: Nicotine PATCH 21 MG/24 HR PATCH TRANSDERM SCH (07:29)
[2023-05-02 10:14] VITALS: BP 102/61
== END 2023-05-02 13:15 | disposition home or self-care (01) | DRG 885 ==
LOC: ED 18:21 → EDHOLD 04-24 13:39 → BSU 04-24 14:50
PROVIDERS: ADMIT Psychiatry & Neurology Psychiatry; ATTEND Psychiatry & Neurology Psychiatry

== ENCOUNTER 2023-08-10 12:01 | Inpatient (IN) ==
[2023-08-10] MEDS ORDERED: LORazepam 2 mg VIAL 1 ml IM ONE (12:18)
[2023-08-10] MEDS: Nicotine PATCH 21 MG/24 HR PATCH TRANSDERM SCH (16:38)
[2023-08-10] MEDS ORDERED: Al Hydrox/Mg Hydrox/Simet LIQ 30 ML UDC PO PRN (17:08)
[2023-08-11] MEDS: Multivitamins/Minerals TAB PO SCH (08:34)
[2023-08-11] MEDS: Nicotine PATCH 21 MG/24 HR PATCH TRANSDERM SCH (08:34)
[2023-08-12] MEDS: Nicotine PATCH 21 MG/24 HR PATCH TRANSDERM SCH ×2 (09:49→11:17)
[2023-08-12] MEDS: Multivitamins/Minerals TAB PO SCH (09:49)
[2023-08-12] MEDS: Nicotine GUM 4MG FRUIT FLAVOR PO PRN ×2 (11:18→13:24)
[2023-08-13] MEDS: Nicotine GUM 4MG FRUIT FLAVOR PO PRN ×6 (06:05→17:58)
[2023-08-13] MEDS: Multivitamins/Minerals TAB PO SCH (07:12)
[2023-08-13] MEDS: Nicotine PATCH 21 MG/24 HR PATCH TRANSDERM SCH (07:12)
[2023-08-13] MEDS ORDERED: Ondansetron ODT 4 mg TAB 4 MG TAB ONE (07:28)
[2023-08-13 08:42] LABS: HDL Cholesterol 54.4 mg/dL
[2023-08-14] MEDS: Nicotine PATCH 21 MG/24 HR PATCH TRANSDERM SCH (08:04)
[2023-08-14] MEDS: Multivitamins/Minerals TAB PO SCH (08:04)
[2023-08-14] MEDS: Nicotine GUM 4MG FRUIT FLAVOR PO PRN ×3 (08:05→12:23)
[2023-08-15] MEDS: Nicotine GUM 4MG FRUIT FLAVOR PO PRN ×3 (06:03→15:33)
[2023-08-15] MEDS: Nicotine PATCH 21 MG/24 HR PATCH TRANSDERM SCH ×2 (06:12→11:08)
[2023-08-15] MEDS: Multivitamins/Minerals TAB PO SCH (09:15)
[2023-08-16] MEDS: Nicotine GUM 4MG FRUIT FLAVOR PO PRN ×4 (05:58→16:21)
[2023-08-16] MEDS: Multivitamins/Minerals TAB PO SCH (08:15)
[2023-08-16] MEDS: Nicotine PATCH 21 MG/24 HR PATCH TRANSDERM SCH (09:49)
[2023-08-17] MEDS: Nicotine GUM 4MG FRUIT FLAVOR PO PRN (06:09)
[2023-08-17] MEDS: Multivitamins/Minerals TAB PO SCH (07:22)
[2023-08-17] MEDS: Nicotine PATCH 21 MG/24 HR PATCH TRANSDERM SCH (07:22)
[2023-08-18] MEDS: Nicotine GUM 4MG FRUIT FLAVOR PO PRN ×4 (06:44→17:57)
[2023-08-18] MEDS: Nicotine PATCH 21 MG/24 HR PATCH TRANSDERM SCH (08:10)
[2023-08-18] MEDS: Multivitamins/Minerals TAB PO SCH (09:47)
[2023-08-19] MEDS: Nicotine GUM 4MG FRUIT FLAVOR PO PRN ×3 (07:29→18:00)
[2023-08-19] MEDS: Nicotine PATCH 21 MG/24 HR PATCH TRANSDERM SCH (08:52)
[2023-08-19] MEDS: Multivitamins/Minerals TAB PO SCH (08:54)
[2023-08-19] MEDS: Benzocaine/Menthol LOZ MT PRN ×2 (11:25→18:00)
[2023-08-20] MEDS: Nicotine GUM 4MG FRUIT FLAVOR PO PRN ×3 (06:06→17:12)
[2023-08-20] MEDS: Multivitamins/Minerals TAB PO SCH (09:09)
[2023-08-20] MEDS: Nicotine PATCH 21 MG/24 HR PATCH TRANSDERM SCH (09:10)
[2023-08-21] MEDS: Nicotine PATCH 21 MG/24 HR PATCH TRANSDERM SCH (08:09)
[2023-08-21] MEDS: Multivitamins/Minerals TAB PO SCH (08:09)
[2023-08-21] MEDS: Nicotine GUM 4MG FRUIT FLAVOR PO PRN ×3 (08:12→18:09)
[2023-08-22] MEDS: Nicotine GUM 4MG FRUIT FLAVOR PO PRN ×3 (07:32→15:58)
[2023-08-22] MEDS: Nicotine PATCH 21 MG/24 HR PATCH TRANSDERM SCH (08:49)
[2023-08-22] MEDS: Multivitamins/Minerals TAB PO SCH (08:49)
[2023-08-22] MEDS ORDERED: [UNRECOGNIZED DRUG - OTHER] IM SCH (10:00)
[2023-08-23] MEDS: Nicotine PATCH 21 MG/24 HR PATCH TRANSDERM SCH (07:27)
[2023-08-23] MEDS: Multivitamins/Minerals TAB PO SCH (07:27)
[2023-08-23] MEDS: Nicotine GUM 4MG FRUIT FLAVOR PO PRN ×2 (08:52→18:16)
[2023-08-24] MEDS: Nicotine PATCH 21 MG/24 HR PATCH TRANSDERM SCH (08:35)
[2023-08-24] MEDS: Multivitamins/Minerals TAB PO SCH (08:36)
[2023-08-24] MEDS: Nicotine GUM 4MG FRUIT FLAVOR PO PRN ×2 (09:33→14:35)
[2023-08-25] MEDS: Nicotine PATCH 21 MG/24 HR PATCH TRANSDERM SCH (08:26)
[2023-08-25] MEDS: Multivitamins/Minerals TAB PO SCH (08:26)
[2023-08-25] MEDS: Nicotine GUM 4MG FRUIT FLAVOR PO PRN ×4 (08:27→18:42)
[2023-08-25] MEDS ORDERED: [UNRECOGNIZED DRUG - OTHER] IM SCH (10:00)
[2023-08-25] MEDS: Benzocaine/Menthol LOZ MT PRN (14:20)
[2023-08-26] MEDS: Nicotine PATCH 21 MG/24 HR PATCH TRANSDERM SCH (08:30)
[2023-08-26] MEDS: Multivitamins/Minerals TAB PO SCH (08:30)
[2023-08-26] MEDS: Nicotine GUM 4MG FRUIT FLAVOR PO PRN (12:41)
[2023-08-26] MEDS ORDERED: Benzocaine/Menthol LOZ PO PRN (17:00)
[2023-08-27] MEDS: Nicotine PATCH 21 MG/24 HR PATCH TRANSDERM SCH (08:20)
[2023-08-27] MEDS: Multivitamins/Minerals TAB PO SCH (08:21)
[2023-08-27] MEDS: Nicotine GUM 4MG FRUIT FLAVOR PO PRN ×2 (08:27→18:22)
[2023-08-27] MEDS ORDERED: Nitrofurantoin (monohydrate/macrocrystals) 100 mg CAP PO SCH (09:00)
[2023-08-27 12:11] LABS: Urine Appearance Cloudy; Urine Bilirubin Negative (Negative); Urine Blood 2+ (Negative); Urine Color Yellow; Urine Glucose Negative (Negative); Urine Ketones Negative (Negative); Urine Nitrite Negative (Negative); Urine Protein Negative (Negative); Urine Specific Gravity 1.005 (1.002-1.030); Urine Urobilinogen Negative (Negative)
[2023-08-27 12:22] LABS: Urine Bacteria 1+ (Absent); Urine Red Blood Cell Trace(0-2/hpf) (Absent); Urine Squamous Epithelial Cell Present (Absent); Urine White Blood Cell Trace(0-5/hpf) (Absent)
[2023-08-28] MEDS: Nicotine GUM 4MG FRUIT FLAVOR PO PRN ×5 (07:02→19:32)
[2023-08-28] MEDS: Multivitamins/Minerals TAB PO SCH (08:03)
[2023-08-28] MEDS: Nicotine PATCH 21 MG/24 HR PATCH TRANSDERM SCH (08:03)
[2023-08-29] MEDS: Nicotine PATCH 21 MG/24 HR PATCH TRANSDERM SCH (08:35)
[2023-08-29] MEDS: Multivitamins/Minerals TAB PO SCH (08:35)
[2023-08-29] MEDS: Nicotine GUM 4MG FRUIT FLAVOR PO PRN ×5 (08:56→20:25)
[2023-08-30] MEDS: Multivitamins/Minerals TAB PO SCH (07:49)
[2023-08-30] MEDS: Nicotine PATCH 21 MG/24 HR PATCH TRANSDERM SCH (07:49)
[2023-08-30] MEDS: Nicotine GUM 4MG FRUIT FLAVOR PO PRN ×3 (09:51→18:17)
[2023-08-31] MEDS: Nicotine PATCH 21 MG/24 HR PATCH TRANSDERM SCH (09:14)
[2023-08-31] MEDS: Multivitamins/Minerals TAB PO SCH (09:22)
[2023-08-31] MEDS: Nicotine GUM 4MG FRUIT FLAVOR PO PRN ×3 (09:22→17:31)
[2023-09-01] MEDS: Nicotine PATCH 21 MG/24 HR PATCH TRANSDERM SCH (08:17)
[2023-09-01] MEDS: Multivitamins/Minerals TAB PO SCH (08:17)
[2023-09-01] MEDS: Nicotine GUM 4MG FRUIT FLAVOR PO PRN ×2 (13:25→18:21)
[2023-09-02] MEDS: Nicotine PATCH 21 MG/24 HR PATCH TRANSDERM SCH (07:53)
[2023-09-02] MEDS: Multivitamins/Minerals TAB PO SCH (07:53)
[2023-09-02] MEDS: Nicotine GUM 4MG FRUIT FLAVOR PO PRN ×2 (10:00→18:34)
[2023-09-03] MEDS: Multivitamins/Minerals TAB PO SCH (08:48)
[2023-09-03] MEDS: Nicotine PATCH 21 MG/24 HR PATCH TRANSDERM SCH (08:49)
[2023-09-03] MEDS: Nicotine GUM 4MG FRUIT FLAVOR PO PRN (12:58)
[2023-09-04] MEDS: Multivitamins/Minerals TAB PO SCH (07:48)
[2023-09-04] MEDS: Nicotine PATCH 21 MG/24 HR PATCH TRANSDERM SCH (07:48)
[2023-09-04] MEDS: Nicotine GUM 4MG FRUIT FLAVOR PO PRN ×4 (10:27→22:31)
[2023-09-05] MEDS: Nicotine GUM 4MG FRUIT FLAVOR PO PRN ×4 (00:31→21:31)
[2023-09-05] MEDS: Multivitamins/Minerals TAB PO SCH (09:43)
[2023-09-05] MEDS: Nicotine PATCH 21 MG/24 HR PATCH TRANSDERM SCH (09:43)
[2023-09-06] MEDS: Nicotine GUM 4MG FRUIT FLAVOR PO PRN ×3 (08:57→15:32)
[2023-09-06] MEDS: Nicotine PATCH 21 MG/24 HR PATCH TRANSDERM SCH (08:57)
[2023-09-06] MEDS: Multivitamins/Minerals TAB PO SCH (08:57)
[2023-09-06] MEDS: Nicotine Lozenge mini 4 MG LOZNG.MINI MT PRN ×3 (17:35→21:30)
[2023-09-07] MEDS: Nicotine Lozenge mini 4 MG LOZNG.MINI MT PRN ×4 (00:03→21:56)
[2023-09-07] MEDS: Nicotine PATCH 21 MG/24 HR PATCH TRANSDERM SCH (10:27)
[2023-09-07] MEDS: Multivitamins/Minerals TAB PO SCH (10:28)
[2023-09-07] MEDS: Benzocaine/Menthol LOZ MT PRN (13:53)
[2023-09-07] MEDS: Nicotine GUM 4MG FRUIT FLAVOR PO PRN (21:09)
[2023-09-08] MEDS: Nicotine Lozenge mini 4 MG LOZNG.MINI MT PRN ×5 (01:13→20:17)
[2023-09-08] MEDS: Multivitamins/Minerals TAB PO SCH (08:32)
[2023-09-08] MEDS: Nicotine PATCH 21 MG/24 HR PATCH TRANSDERM SCH (08:32)
[2023-09-08] MEDS: Nicotine GUM 4MG FRUIT FLAVOR PO PRN (14:28)
[2023-09-09] MEDS: Nicotine Lozenge mini 4 MG LOZNG.MINI MT PRN ×4 (09:32→21:16)
[2023-09-09] MEDS: Multivitamins/Minerals TAB PO SCH (09:32)
[2023-09-09] MEDS: Nicotine PATCH 21 MG/24 HR PATCH TRANSDERM SCH (09:32)
[2023-09-09] MEDS: Nicotine GUM 4MG FRUIT FLAVOR PO PRN ×2 (16:54→19:23)
[2023-09-10] MEDS: Multivitamins/Minerals TAB PO SCH (08:15)
[2023-09-10] MEDS: Nicotine PATCH 21 MG/24 HR PATCH TRANSDERM SCH (08:15)
[2023-09-10] MEDS: Nicotine Lozenge mini 4 MG LOZNG.MINI MT PRN ×3 (08:16→13:27)
[2023-09-10] MEDS: Nicotine GUM 4MG FRUIT FLAVOR PO PRN (15:30)
[2023-09-11] MEDS: Multivitamins/Minerals TAB PO SCH (07:39)
[2023-09-11] MEDS: Nicotine PATCH 21 MG/24 HR PATCH TRANSDERM SCH (07:39)
[2023-09-11] MEDS: Nicotine GUM 4MG FRUIT FLAVOR PO PRN ×2 (11:45→19:33)
[2023-09-11] MEDS: Nicotine Lozenge mini 4 MG LOZNG.MINI MT PRN ×3 (15:09→20:51)
[2023-09-11] MEDS: Benzocaine/Menthol LOZ MT PRN (18:15)
[2023-09-12] MEDS: Nicotine PATCH 21 MG/24 HR PATCH TRANSDERM SCH (09:33)
[2023-09-12] MEDS: Multivitamins/Minerals TAB PO SCH (09:35)
[2023-09-12 11:56] LABS: ABS Basophils 0.1 10^3/uL (0.0-0.1); ABS Eosinophils 0.4 10^3/uL (0.0-0.5); ABS Lymphocytes 1.9 10^3/uL (1.0-4.8); ABS Monocytes 0.9 10^3/uL (0.0-0.9); ABS Neutrophils 4.9 10^3/uL (1.5-7.6); Eosinophil % 5.1 %; Hematocrit 37.8 % (35-45); Lymphocyte % 23.2 %; Mean Corpuscular Hemoglobin 32.1 pg (27-33); Mean Corpuscular Hgb Conc 34.4 g/dL (31-36); Mean Corpuscular Volume 93.3 fL (80-97); Mean Platelet Volume 7.6 fL (7.5-11.2); Platelet Count 240 10^3/uL (150-450); Red Blood Count 4.05 10^6/uL (3.63-4.92); Red Cell Distribution Width 13.5 % (12-17); White Blood Count 8.1 10^3/uL (3.8-11.8)
[2023-09-12 12:33] LABS: Calcium 9.9 mg/dL (8.6-10.3); Creatinine, Serum 0.83 mg/dL (0.51-0.95); Potassium 4.3 mmol/L (3.5-5.0); eGFR CKD-EPI 95.4 (>60)
[2023-09-12 14:09] LABS: Lithium 0.27 mmol/L (0.6-1.2)
[2023-09-12 14:22] LABS: TSH Ultra Thyroid Stim Horm 1.51 mcIU/mL (0.34-5.60)
[2023-09-12 14:45] LABS: Albumin 4.4 g/dL (3.2-5.2); Albumin/Globulin Ratio 1.3 (1-3); Globulin 3.4 g/dL (2-4); Total Bilirubin 0.6 mg/dL (0.2-1.0); Total Protein 7.8 g/dL (6.4-8.9)
[2023-09-12] MEDS: Nicotine GUM 4MG FRUIT FLAVOR PO PRN ×2 (16:18→20:30)
[2023-09-12 17:13] LABS: Hepatitis B Surface Antigen Nonreactive (Nonreactive)
[2023-09-12 17:18] LABS: Hepatitis A Ab IgM Negative (Negative)
[2023-09-12 17:19] LABS: Hepatitis B Core IgM Nonreactive (Nonreactive)
[2023-09-12] MEDS: Nicotine Lozenge mini 4 MG LOZNG.MINI MT PRN (18:34)
[2023-09-12 19:48] LABS: Hepatitis C Antibody Reactive (Negative)
[2023-09-12] MEDS: Ciproflox/Dexameth OTIC.SUSP 7.5 ML BTL RIGHT EAR SCH (22:02)
[2023-09-13] MEDS: Ciproflox/Dexameth OTIC.SUSP 7.5 ML BTL RIGHT EAR SCH ×2 (08:25→21:02)
[2023-09-13] MEDS: Multivitamins/Minerals TAB PO SCH (08:25)
[2023-09-13] MEDS: Nicotine PATCH 21 MG/24 HR PATCH TRANSDERM SCH (08:26)
[2023-09-13] MEDS: Nicotine GUM 4MG FRUIT FLAVOR PO PRN ×3 (11:34→21:02)
[2023-09-13] MEDS: Nicotine Lozenge mini 4 MG LOZNG.MINI MT PRN (19:01)
[2023-09-14] MEDS: Ciproflox/Dexameth OTIC.SUSP 7.5 ML BTL RIGHT EAR SCH ×2 (08:38→20:05)
[2023-09-14] MEDS: Nicotine PATCH 21 MG/24 HR PATCH TRANSDERM SCH (08:38)
[2023-09-14] MEDS: Multivitamins/Minerals TAB PO SCH (08:38)
[2023-09-14] MEDS: Nicotine GUM 4MG FRUIT FLAVOR PO PRN ×3 (11:08→20:05)
[2023-09-15] MEDS: Ciproflox/Dexameth OTIC.SUSP 7.5 ML BTL RIGHT EAR SCH ×2 (08:31→20:04)
[2023-09-15] MEDS: Nicotine PATCH 21 MG/24 HR PATCH TRANSDERM SCH (08:31)
[2023-09-15] MEDS: Multivitamins/Minerals TAB PO SCH (08:32)
[2023-09-15] MEDS: Nicotine GUM 4MG FRUIT FLAVOR PO PRN ×3 (08:32→20:05)
[2023-09-15] MEDS: Nicotine Lozenge mini 4 MG LOZNG.MINI MT PRN (15:13)
[2023-09-16] MEDS: Nicotine PATCH 21 MG/24 HR PATCH TRANSDERM SCH (08:17)
[2023-09-16] MEDS: Multivitamins/Minerals TAB PO SCH (08:18)
[2023-09-16] MEDS: Ciproflox/Dexameth OTIC.SUSP 7.5 ML BTL RIGHT EAR SCH ×2 (08:18→20:45)
[2023-09-16] MEDS: Nicotine GUM 4MG FRUIT FLAVOR PO PRN ×3 (13:07→19:57)
[2023-09-17] MEDS: Nicotine PATCH 21 MG/24 HR PATCH TRANSDERM SCH (09:09)
[2023-09-17] MEDS: Ciproflox/Dexameth OTIC.SUSP 7.5 ML BTL RIGHT EAR SCH ×2 (09:09→20:13)
[2023-09-17] MEDS: Multivitamins/Minerals TAB PO SCH (09:09)
[2023-09-17] MEDS: Nicotine GUM 4MG FRUIT FLAVOR PO PRN ×2 (15:28→19:19)
[2023-09-18 08:58] LABS: Lithium 0.79 mmol/L (0.6-1.2)
[2023-09-18 08:59] LABS: Direct Bilirubin 0.1 mg/dL (0.03-0.18); Indirect Bilirubin 0.4 mg/dL (0.3-1.0); Total Bilirubin 0.5 mg/dL (0.2-1.0); Total Protein 7.5 g/dL (6.4-8.9)
[2023-09-18 09:31] LABS: Albumin 4.3 g/dL (3.2-5.2); Albumin/Globulin Ratio 1.3 (1-3); Globulin 3.2 g/dL (2-4)
[2023-09-18] MEDS: Multivitamins/Minerals TAB PO SCH (09:31)
[2023-09-18] MEDS: Nicotine PATCH 21 MG/24 HR PATCH TRANSDERM SCH (09:31)
[2023-09-18] MEDS: Ciproflox/Dexameth OTIC.SUSP 7.5 ML BTL RIGHT EAR SCH ×2 (09:32→20:07)
[2023-09-18 10:46] LABS: HIV 4th Generation Nonreactive (Nonreactive)
[2023-09-18] MEDS: Nicotine GUM 4MG FRUIT FLAVOR PO PRN ×4 (12:22→21:09)
[2023-09-18] MEDS: Benzocaine/Menthol LOZ MT PRN ×2 (17:38→21:08)
[2023-09-18] MEDS: Nicotine Lozenge mini 4 MG LOZNG.MINI MT PRN (19:04)
[2023-09-19] MEDS: Ciproflox/Dexameth OTIC.SUSP 7.5 ML BTL RIGHT EAR SCH (08:29)
[2023-09-19] MEDS: Nicotine PATCH 21 MG/24 HR PATCH TRANSDERM SCH (08:29)
[2023-09-19] MEDS: Multivitamins/Minerals TAB PO SCH (08:30)
[2023-09-19] MEDS: Nicotine GUM 4MG FRUIT FLAVOR PO PRN ×3 (11:03→18:38)
[2023-09-20] MEDS: Nicotine PATCH 21 MG/24 HR PATCH TRANSDERM SCH (08:25)
[2023-09-20] MEDS: Multivitamins/Minerals TAB PO SCH (08:26)
[2023-09-20] MEDS: Nicotine GUM 4MG FRUIT FLAVOR PO PRN ×4 (13:34→20:02)
[2023-09-21] MEDS: Nicotine PATCH 21 MG/24 HR PATCH TRANSDERM SCH (08:46)
[2023-09-21] MEDS: Multivitamins/Minerals TAB PO SCH (08:46)
[2023-09-21] MEDS: Nicotine Lozenge mini 4 MG LOZNG.MINI MT PRN (12:29)
[2023-09-21] MEDS: Nicotine GUM 4MG FRUIT FLAVOR PO PRN (19:02)
[2023-09-22] MEDS: Nicotine PATCH 21 MG/24 HR PATCH TRANSDERM SCH (09:01)
[2023-09-22] MEDS: Multivitamins/Minerals TAB PO SCH (09:03)
[2023-09-22] MEDS: Nicotine GUM 4MG FRUIT FLAVOR PO PRN ×2 (10:52→19:46)
[2023-09-23] MEDS: Nicotine PATCH 21 MG/24 HR PATCH TRANSDERM SCH (08:43)
[2023-09-23] MEDS: Nicotine GUM 4MG FRUIT FLAVOR PO PRN ×2 (08:44→19:17)
[2023-09-23] MEDS: Multivitamins/Minerals TAB PO SCH (08:44)
[2023-09-23] MEDS: Nicotine Lozenge mini 4 MG LOZNG.MINI MT PRN (14:16)
[2023-09-24] MEDS: Multivitamins/Minerals TAB PO SCH (08:24)
[2023-09-24] MEDS: Nicotine PATCH 21 MG/24 HR PATCH TRANSDERM SCH (08:24)
[2023-09-24] MEDS: Nicotine GUM 4MG FRUIT FLAVOR PO PRN ×2 (09:11→14:10)
[2023-09-25] MEDS ORDERED: [UNRECOGNIZED DRUG - OTHER] IM SCH (06:00)
[2023-09-25] MEDS: Nicotine GUM 4MG FRUIT FLAVOR PO PRN ×2 (07:45→14:34)
[2023-09-25] MEDS: Nicotine PATCH 21 MG/24 HR PATCH TRANSDERM SCH (07:45)
[2023-09-25] MEDS: Multivitamins/Minerals TAB PO SCH (07:45)
[2023-09-26] MEDS: Nicotine PATCH 21 MG/24 HR PATCH TRANSDERM SCH (08:42)
[2023-09-26] MEDS: Multivitamins/Minerals TAB PO SCH (08:43)
[2023-09-26 09:04] LABS: Albumin 4.1 g/dL (3.2-5.2); Albumin/Globulin Ratio 1.3 (1-3); Direct Bilirubin 0.1 mg/dL (0.03-0.18); Globulin 3.1 g/dL (2-4); Indirect Bilirubin 0.3 mg/dL (0.3-1.0); Total Bilirubin 0.4 mg/dL (0.2-1.0); Total Protein 7.2 g/dL (6.4-8.9)
[2023-09-26] MEDS: Nicotine GUM 4MG FRUIT FLAVOR PO PRN ×5 (10:31→19:43)
[2023-09-27] MEDS: Multivitamins/Minerals TAB PO SCH (08:49)
[2023-09-27] MEDS: Nicotine PATCH 21 MG/24 HR PATCH TRANSDERM SCH (08:50)
[2023-09-27] MEDS: Nicotine GUM 4MG FRUIT FLAVOR PO PRN ×2 (15:50→17:50)
[2023-09-27] MEDS: Nicotine Lozenge mini 4 MG LOZNG.MINI MT PRN (19:56)
[2023-09-28] MEDS: Nicotine PATCH 21 MG/24 HR PATCH TRANSDERM SCH (08:57)
[2023-09-28] MEDS: Multivitamins/Minerals TAB PO SCH (08:57)
[2023-09-28] MEDS: Nicotine GUM 4MG FRUIT FLAVOR PO PRN ×2 (08:57→16:19)
[2023-09-28] MEDS: Nicotine Lozenge mini 4 MG LOZNG.MINI MT PRN (17:29)
[2023-09-29] MEDS: Nicotine PATCH 21 MG/24 HR PATCH TRANSDERM SCH (08:35)
[2023-09-29] MEDS: Multivitamins/Minerals TAB PO SCH (08:35)
[2023-09-29] MEDS: Nicotine GUM 4MG FRUIT FLAVOR PO PRN ×3 (08:35→19:48)
[2023-09-30] MEDS: Nicotine GUM 4MG FRUIT FLAVOR PO PRN ×2 (08:26→19:18)
[2023-09-30] MEDS: Multivitamins/Minerals TAB PO SCH (08:26)
[2023-09-30] MEDS: Nicotine PATCH 21 MG/24 HR PATCH TRANSDERM SCH (08:26)
[2023-10-01] MEDS: Multivitamins/Minerals TAB PO SCH (08:20)
[2023-10-01] MEDS: Nicotine PATCH 21 MG/24 HR PATCH TRANSDERM SCH (08:20)
[2023-10-01] MEDS: Nicotine GUM 4MG FRUIT FLAVOR PO PRN ×2 (16:21→19:11)
[2023-10-02] MEDS: Multivitamins/Minerals TAB PO SCH (08:18)
[2023-10-02] MEDS: Nicotine PATCH 21 MG/24 HR PATCH TRANSDERM SCH (08:19)
[2023-10-02] MEDS: Nicotine GUM 4MG FRUIT FLAVOR PO PRN ×4 (10:42→20:51)
[2023-10-03] MEDS: Nicotine PATCH 21 MG/24 HR PATCH TRANSDERM SCH (08:29)
[2023-10-03] MEDS: Multivitamins/Minerals TAB PO SCH (08:31)
[2023-10-03 08:39] LABS: Lithium 0.72 mmol/L (0.6-1.2)
[2023-10-03 08:42] LABS: Albumin 4.4 g/dL (3.2-5.2); Albumin/Globulin Ratio 1.3 (1-3); Globulin 3.5 g/dL (2-4); Indirect Bilirubin 0.4 mg/dL (0.3-1.0); Total Bilirubin 0.4 mg/dL (0.2-1.0); Total Protein 7.9 g/dL (6.4-8.9)
[2023-10-03] MEDS: Nicotine GUM 4MG FRUIT FLAVOR PO PRN ×2 (12:52→15:21)
[2023-10-04] MEDS: Nicotine PATCH 21 MG/24 HR PATCH TRANSDERM SCH (08:18)
[2023-10-04] MEDS: Multivitamins/Minerals TAB PO SCH (08:19)
[2023-10-04] MEDS: Nicotine GUM 4MG FRUIT FLAVOR PO PRN ×4 (08:21→20:01)
[2023-10-04 08:46] VITALS: BP 105/61
[2023-10-05] MEDS: Nicotine PATCH 21 MG/24 HR PATCH TRANSDERM SCH (07:32)
[2023-10-05] MEDS: Multivitamins/Minerals TAB PO SCH (07:32)
== END 2023-10-05 08:40 | DRG 885 ==
LOC: ED 12:01 → EDHOLD 13:18 → BSU 13:20
PROVIDERS: ADMIT Registered Nurse Emergency; ATTEND Psychiatry & Neurology Psychiatry